=== PATIENT | male | born 1965 | race Caucasian/White ===

== ENCOUNTER 2016-07-26 15:38 | Emergency (ER) | payer OTHER ==
[2016-07-26 15:48] VITALS: BP 151/78
[2016-07-26] MEDS ORDERED: ALBUTEROL SULFATE 2.5 MG/3 ML VIAL.NEB IH ONE (16:06)
--- NOTE | 2016-07-26 16:11 | ERNOTE ---
Time Seen by Provider: 07/26/16 16:01 Stated Complaint: SORE THROAT Presenting Symptoms:: cough, sore throat Source: patient Exam Limitations: no limitations Immunizations: IMMUNIZATION HX Immunizations Up to Date No History of Influenza Vaccine No Hx Pneumococcal Vaccination No Allergies/Adverse Reactions: Allergies No Known Allergies Allergy (Verified 07/26/16 15:48) Home Medications: HOME MEDICATIONS Albuterol Sulfate [Proair Hfa] 8.5 gm IH QID 11/28/12 [Last Taken 12/20/13] Allopurinol [Zyloprim (Allopurinol)] 200 mg PO DAILY 11/28/12 [Last Taken ] Aspirin [Aspirin Enteric Coated] 81 mg PO DAILY 11/28/12 [Last Taken 12/20/13] Furosemide [Lasix] 40 mg PO BID 11/28/12 [Last Taken 12/20/13] Ipratropium [place] [Atrovent Hfa] 12.9 gm IH QID 11/28/12 [Last Taken 12/20/13] Lisinopril [Zestril] 20 mg PO DAILY 11/28/12 [Last Taken 12/20/13] Omeprazole Magnesium [Prilosec Otc] 20 mg PO DAILY 11/28/12 [Last Taken 12/20/13 ] Methylprednisolone [Medrol Dosepak] 4 mg PO QID #21 tab 11/15/14 [Last Taken Unknown] traMADol HCL [Ultram] 50 mg PO QID PRN #20 tablet 11/15/14 [Last Taken Unknown] Albuterol Sulfate 2.5 mg IH Q4H PRN #25 vial.neb 07/26/16 [Last Taken Unknown] predniSONE [Prednisone] 3 tab PO DAILY #12 tab 07/26/16 [Last Taken Unknown] - History of Present Ilness Narrative: Patient started to have URI symptoms for about five days, sore throat, cough, shortness of breath with exertion. He has a history of asthma but has not had any problems with that for about eight years, wears CPAP at night. Date (Duration): 07/21/16 Frequency/Possible Cause: Reports: occasional episodes Modifying Factors - Worsens: Reports: activity Review of Systems - Review of Systems Constitutional: Absent: recent illness, fever, chills ENT: Present: ear pain, nose congestion, sore throat Respiratory: Present: shortness of breath, cough Cardiology: Absent: chest pain Gastrointestinal/Abdominal: Absent: nausea, vomiting, abdominal pain Neurological: Absent: weakness, numbness - Patient's Past Medical History Patient History - Medical: GERD Patient History - Cardiac/Respiratory: Asthma, Hypertension, Hyperlipidemia, Other Patient History - Cancer: No Hx of Cancer Patient History - Surgical Procedures: T & A Patient History - Other: None - Social History Living Situations: home Psych History: No pertinent hx Smoking Status: Never smoker Alcohol Use: none Drug Use: none - Immunizations Immunizations Up to Date: No Hx Pneumococcal Vaccination: No History of Influenza Vaccine: No Physical Exam - Physical Exam General Appearance: Present: wd/wn, alert, no apparent distress, obese Eye Exam: Normal inspection: bilateral Ears, Nose, Throat: Present: normal except -, pharyngeal erythema. Absent: pharyngeal swelling, tonsillar exudate Neck: Present: normal inspection, lymphadenopathy (L). Absent: lymphadenopathy (R) Respiratory: Present: no respiratory distress, decreased breath sounds, expiration (prolonged), wheezing - few Cardiovascular/Chest: Present: regular rate, rhythm, no murmur Neurological Exam: Present: alert, oriented, normal mood/affect Skin Exam: Present: normal color, warm/dry ED Progress - Results and Orders Patient's Lab Results:: I have reviewed the patient's lab results. - Vital Signs Patient's Vital Signs:: I have reviewed the patient's vital signs. Vital Signs: Vital Signs 07/26/16 15:41 Temperature 36.4 C L Pulse Rate 66 Respiratory 16 Rate Blood Pressure 151/78 O2 Sat by Pulse 91 Oximetry - Progress/Reassessment Chief Complaint: Upper Respiratory Symptoms Progress Note-Subjective: 07/26/16 16:42 improved air movement after albuterol neb treatment 07/26/16 16:52 discussed results, feels much better after albuterol Departure - Departure Clinical Impression: Bronchitis Disposition: Home self-care Condition: Good Instructions: Acute Bronchitis, Tohy-ag-[id number] Additional Instructions: use the nebulizer or the inhaler with a spacer call your doctor for follow up Referrals: Chris Lane DO [Staff Physician] - Prescriptions: Albuterol Sulfate 2.5 mg IH Q4H PRN #25 vial.neb PRN Reason: Shortness Of Breath/Wheezing predniSONE [Prednisone] 3 tab PO DAILY #12 tab
[2016-07-26] MEDS ORDERED: ALBUTEROL SULFATE 2.5 MG/0.5 ML VIAL.NEB IH ONE (16:13)
--- OUTSIDE RECORDS SUMMARY | 2016-07-26 16:50 | XMS REPORT | Continuity of Care Document ---
:1965 Author Organization [facility] ([facility]) Address [place] [address] Phone [phone] Care Team Providers Name Role Phone Unavailable Primary Care Provider Unavailable Source Comments This disclosure is being made pursuant to the Care Everywhere program, applicable federal and state laws, and may not contain all informaitonavailable regarding this patient.[facility] ([facility]) Active Allergies and Adverse Reactions Not on File Current Medications Not on file Active Problems Not on file Social History Tobacco Use Types Packs/Day Years Used Date Never Assessed Plan of Care Health Maintenance Due Date Last Done Comments HCV Screening 1965 Hepatitis B Vaccine (1 of 3 - Primary Series) 1965 Tdap Vaccine 1974 Lipid Disorder Screening 1981 MMR Vaccine 1981 Td Vaccine 1981 Colonoscopy 04/20/2013 Prostate Cancer Screening 2013 Influenza Vaccine: Seasonal (#1) 11/10/2015 Results from Last 3 Months Not on file
== END 2016-07-26 17:02 | disposition home or self-care (01) ==
LOC: ER 15:38
DX: J20.9 Acute bronchitis, unspecified (principal); K21.9 Gastro-esophageal reflux disease without esophagitis; I10 Essential (primary) hypertension; J45.909 Unspecified asthma, uncomplicated

== ENCOUNTER 2017-01-25 09:38 | Day surgery (SDC) | payer OTHER ==
[~2017-01-25 09:38] MED LIST: RINGER'S SOLUTION,LACTATED 1,000 ML IV PRN; ceFAZolin SODIUM 2 GM in DEXTROSE 5 % IN WATER 50 ML IV PRN
[2017-01-25] MEDS ORDERED: ENOXAPARIN SODIUM 40 MG/0.4 ML SYRG SC ONE (10:15)
[2017-01-25] MEDS ORDERED: LIDOCAINE HCL/EPINEPHRINE 30 ML VIAL IJ ONE ×2 (11:00)
[2017-01-25] MEDS ORDERED: BUPIVACAINE HCL 50 ML VIAL IJ ONE ×2 (11:00)
--- NOTE | 2017-01-25 12:00 | OR ---
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 It is causing impairment of his activities of daily living. He was placed in the supine position and under the induction of general anesthesia. The left leg was frog-legged and the proximal thigh and genitalia were prepped and draped in a sterile fashion. An elliptical incision was carried out at the base of this polyp. The subq was then divided in continuity with a ligasure device. There was significant edema of the subq fat. Hemostasis was adequate. A 10fr flat drain was brought through a separate stab incision and secured with silk. The incision was closed with diane. A sterile dressing was applied. The patient tolerated the procedure well without apparent complications and was discharged from the OR in stable condition.
[2017-01-25] MEDS ORDERED: HYDROcodone/ACETAMINOPHEN 1 EACH TABLET PO PRN (12:53)
[2017-01-25] MEDS ORDERED: IBUPROFEN 800 MG TABLET PO SCH (13:00)
[2017-01-25 14:02] VITALS: BP 152/95
== END 2017-01-25 09:39 | disposition home or self-care (01) ==
LOC: AMB 09:38
PROVIDERS: ATTEND Specialist
PROC: 0JBM0ZZ Excision of Left Upper Leg Subcutaneous Tissue and Fascia, Open Approach (ICD-10-PCS; principal; 2017-01-25 11:30)
DX: D17.24 Benign lipomatous neoplasm of skin and subcutaneous tissue of left leg (principal); I10 Essential (primary) hypertension; K21.9 Gastro-esophageal reflux disease without esophagitis; J45.909 Unspecified asthma, uncomplicated; F41.9 Anxiety disorder, unspecified; E66.01 Morbid (severe) obesity due to excess calories; Z68.44 Body mass index [BMI] 60.0-69.9, adult

== ENCOUNTER 2017-02-11 09:56 | Inpatient (IN) | payer OTHER ==
[2017-02-11] MEDS ORDERED: ceFAZolin SODIUM 2 GM in DEXTROSE 5 % IN WATER 50 ML IV PRN ×2 (15:48)
[2017-02-11 16:31] LABS: Hematocrit 40.9 % (42.0-52.0); Mean Corpuscular Hemoglobin 29.8 pg (27-31); Mean Corpuscular Hgb Conc 34.2 g/dl (32-36); Mean Platelet Volume 10.9 fl (6.0-9.5); Neutrophil # 15.1 K/mm3 (1.3-6.0); Neutrophil % 86.3 % (42-75.0); Platelet Count 264 K/mm3 (150-450); Red Cell Distribution Width 12.4 % (11.5-14.0); White Blood Count 17.4 K/mm3 (4.0-10.5)
[2017-02-11 16:44] LABS: Albumin * 3.5 gm/dl (3.4-5.0); Anion Gap 11.9 mmol/L (6.8-13.8); BUN/Creatinine Ratio 13.1 (9.0-21.6); Bilirubin, Total 0.5 mg/dL (0.0-1.1); Ca. Corrected For Albumin 9.2 mg/dL (8.4-10.2); Calcium * 9.1 mg/dL (7.9-10.9); Carbon Dioxide 29.9 mmol/L (24-32.6); Potassium 3.8 mmol/L (3.4-4.6); Total Protein 7.7 gm/dL (6.2-8.2)
[2017-02-11] MEDS: RINGER'S SOLUTION,LACTATED 1,000 ML IV PRN ×2 (16:55→22:46)
[2017-02-11] MEDS ORDERED: FLU VACC QS2017-18(6MOS UP)/PF 60 MCG/0.5 ML SYRINGE IM ONE (20:00)
[2017-02-11] MEDS ORDERED: RINGER'S SOLUTION,LACTATED 1,000 ML IV ONE (20:45)
[2017-02-11] MEDS ORDERED: oxyCODONE HCL/ACETAMINOPHEN 1 TAB TABLET PO PRN (22:03)
[2017-02-11] MEDS ORDERED: ONDANSETRON HCL/PF 2 MG/ML VIAL IV PRN (22:03)
[2017-02-11] MEDS ORDERED: FLUTICASONE/SALMETEROL 14 PUFF DISK.W.DEV IH PRN (22:08)
--- NOTE | 2017-02-11 22:42 | OR ---
Operative Report - Dictated Report Narrative: OPERATIVE REPORT DATE OF OPERATION: 02/11/2017 PREOPERATIVE DIAGNOSIS: Wound infection left thigh POSTOPERATIVE DIAGNOSIS: Wound infection with abscess left thigh OPERATION: Incision and drainage, irrigation, and packing of wound left thigh SURGEON: Radhika Vidal MD ANESTHESIA: Gen. rhea Minaya CRNA INDICATIONS FOR PROCEDURE: The patient is a 51-year-old male who had excision of a large lipoma of the left medial thigh on 01/25/2017. He has had considerable drainage from the posterior aspect of his incision and developed sudden tearing pain. He has developed nausea, generalized achiness, and fever. FINDINGS: Abscess of the incision with an open wound 15 cm x 3 cm x 5 cm NARRATIVE OF PROCEDURE: The patient was identified preoperatively, the surgical site was marked, and prior to the administration of anesthetic a multidisciplinary timeout was observed. The patient was placed supine, SCDs were applied, intravenous Ancef was administered, and general endotracheal anesthetic was administered. The incision on the left thigh was prepped with Betadine solution and isolated with sterile drapes. The remainder the patient was covered with a sterile disposable drape. The wound was inspected. The majority of diane on the medial/posterior aspect of the inner thigh were seen to be disrupted. The anterolateral one third of the incision appeared to be healing well. Diane were removed from the area of obvious drainage and a hemostat inserted into the subcutaneous tissue. A large cavity was encountered with grossly purulent drainage. A culture was obtained and submitted. The extent of the cavity was outlined and the overlying diane were removed. The incision was then opened bluntly revealing a very shaggy subcutaneous cavity measuring 15 cm (in the direction of the incision) by 3 cm wide, by 5 cm deep. The cavity was then irrigated with saline and shaggy material nonselectively debrided with gauze. Subcutaneous bleeding points were cauterized until the wound appeared hemostatic. 1 L of saline was used to irrigate the cavity which was then packed with one roll of saline saturated Kerlix. The surrounding skin was washed and dried and a dressing of 2 large Mepilex borders with Medipore tape was applied. All counts were correct. There was no measurable blood loss. A culture was submitted. The operative procedure was terminated at this point. The patient tolerated the anesthetic and procedure well without complication. The patient was recovered in the operating room and then returned to the floor awake, extubated and in stable condition. He will need to be returned to the operating room tomorrow for packing change under anesthesia, and then on a daily basis until a wound VAC can be obtained. He will receive IV Ancef until cultures are returned. SCDs will be used for the VTE prophylaxis due to concerns with postoperative bleeding in the wound. Reviewed and electronically signed
[2017-02-12] MEDS: ceFAZolin SODIUM 1 GM in DEXTROSE 5 % IN WATER 100 ML IV SCH ×8 (03:07→19:05)
[2017-02-12] MEDS: ACETAMINOPHEN 500 MG TABLET PO PRN ×2 (03:24→12:15)
[2017-02-12] MEDS ORDERED: OMEPRAZOLE 20 MG CAPSULE.SA PO SCH (07:00)
[2017-02-12] MEDS ORDERED: FLU VACC QS2017-18(6MOS UP)/PF 60 MCG/0.5 ML SYRINGE IM ONE (09:00)
[2017-02-12] MEDS ORDERED: RINGER'S SOLUTION,LACTATED 1,000 ML IV ONE ×2 (10:00→10:25)
[2017-02-12] MEDS: ALBUTEROL SULFATE 2.5 MG/0.5 ML VIAL.NEB IH SCH ×4 (10:34→19:31)
--- NOTE | 2017-02-12 10:48 | OR ---
Operative Report - Dictated Report Narrative: OPERATIVE REPORT DATE OF OPERATION: 02/12/2017 PREOPERATIVE DIAGNOSIS: Wound infection left thigh POSTOPERATIVE DIAGNOSIS: Wound infection left thigh OPERATION: Packing change under anesthesia SURGEON: Radhika Vidal MD ANESTHESIA: Gen. LMA Leon Minaya CRNA INDICATIONS FOR PROCEDURE: The patient is a 51-year-old male who underwent excision of a large lipoma of the left thigh on 01/25/2017. He developed a wound abscess which was drained and debrided yesterday. He is brought for packing change under anesthesia FINDINGS: No extension, fur cleaner cavity 15 cm long by 3 cm wide by 5 cm deep. Beginning granulation. NARRATIVE OF PROCEDURE: The patient was identified preoperatively, the surgical site was marked, and prior to the administration of anesthetic a multidisciplinary timeout was observed. With the patient supine and SCDs in place Gen. LMA was administered. The old dressing was removed. The left thigh was prepped with Betadine solution and isolated with sterile towels. The packing was removed and the cavity inspected. There was no evidence of abscess extension. There was beginning granulation. The wound was cleaned with saline and a new Kerlix packing placed. Wound was dressed with Mepilex border and Medipore tape. The operative procedure was terminated at this point. Patient tolerated the anesthetic and procedure well without complication. There was no measurable blood loss. All counts were correct. No specimens were submitted. The patient was recovered in the operating room and then returned to the floor awake, extubated, and in stable condition. He will require return to the OR tomorrow for packing change. Reviewed and electronically signed
[2017-02-12] MEDS ORDERED: ALBUTEROL SULFATE 200 PUFF INHALER IH SCH (11:00)
[2017-02-12] MEDS: ALLOPURINOL 100 MG TABLET PO SCH (11:18)
[2017-02-12] MEDS: LISINOPRIL 20 MG TABLET PO SCH (11:18)
[2017-02-12] MEDS: ASPIRIN 81 MG TABLET.DR PO SCH (11:18)
[2017-02-12] MEDS: PANTOPRAZOLE SODIUM 20 MG TABLET.DR PO SCH (11:20)
[2017-02-12] MEDS: RINGER'S SOLUTION,LACTATED 1,000 ML IV PRN (11:32)
[2017-02-13] MEDS: ceFAZolin SODIUM 1 GM in DEXTROSE 5 % IN WATER 100 ML IV SCH ×2 (03:09)
[2017-02-13] MEDS: ALBUTEROL SULFATE 2.5 MG/0.5 ML VIAL.NEB IH SCH ×2 (06:26→10:40)
[2017-02-13] MEDS: RINGER'S SOLUTION,LACTATED 1,000 ML IV PRN (08:22)
[2017-02-13] MEDS ORDERED: RINGER'S SOLUTION,LACTATED 1,000 ML IV ONE (08:50)
[2017-02-13 09:24] VITALS: BP 135/70
[2017-02-13] MEDS: LISINOPRIL 20 MG TABLET PO SCH (09:56)
[2017-02-13] MEDS: ASPIRIN 81 MG TABLET.DR PO SCH (09:56)
[2017-02-13] MEDS: PANTOPRAZOLE SODIUM 20 MG TABLET.DR PO SCH (09:56)
[2017-02-13] MEDS: ALLOPURINOL 100 MG TABLET PO SCH (10:00)
--- NOTE | 2017-02-13 10:09 | PN ---
Dictated Progress Note - Date and Time Seen: Date: 02/12/17 Time: 08:00 - Progress Note Narrative: Vital Signs - Last Taken Temp 37.2 C L 02/12/17 04:22 Pulse 71 02/12/17 04:22 Resp 18 02/12/17 04:22 BP 143/77 02/12/17 04:22 Pulse Ox 94 02/12/17 04:22 Culture 02/11/17 21:15 Wound Culture - Final Thigh - Left Group C Streptococcus VS have remained normal. Has tolerated po well with NPO for dressing change. Has SCD's and is OOB, voiding. For dressing change in OR today
--- NOTE | 2017-02-13 10:20 | PN ---
Dictated Progress Note - Date and Time Seen: Date: 02/13/17 Time: 08:30 - Progress Note Narrative: Vital Signs - Last Taken Temp 36.4 C L 02/13/17 07:02 Pulse 63 02/13/17 07:02 Resp 18 02/13/17 07:02 BP 127/77 02/13/17 07:02 Pulse Ox 94 02/13/17 07:02 Culture 02/11/17 21:15 Wound Culture - Final Thigh - Left Group C Streptococcus VS have remained normal, dressing intact. Has been OOB, voiding, and tolerating diet with NPO for OR this AM
--- NOTE | 2017-02-13 10:31 | DS ---
(1) Wound infection after surgery Problem: Acute Description of Stay: He had I&D of left thigh abscess in the surgical incision with placement of Kerlix packing 02/11/17. He was placed in acute care for antibiotics with SCD's and OOB for VTE prophylaxis. Packing was changed under anesthesia 02/12/17 and without anesthesia on 02/13/17. The wound culture grew group A strep but not viable for JAS. He will be discharged home to leave current dressing intact/re-enforce as needed. Plan is to order a wound vac and refer to Wound Center. Will resume his usual meds and CPAP. Will have to contact patient to arrange venue of next dressing change depending upon when the wound vac is available. Procedures Performed: see notes below - I&D with packing of abscess left thigh incision 02/11/17. Packing change with anesthesia 02/12/17. Packing change Discharge Disposition: Home self care Disposition: Home self-care Condition: Good Discharge Activity: Activity as tolerated Discharge Diet: General/regular food Additional Patient Instructions (free text): Keep current dressing dry and re-enforce as needed. Call for questions or concerns. Complete Home Medications List: Complete Home Medication List: Albuterol Sulfate [Proair Hfa] 8.5 gm IH QID 11/28/12 Allopurinol [Zyloprim] 200 mg PO DAILY 11/28/12 Aspirin [Aspirin Enteric Coated] 81 mg PO DAILY 11/28/12 Furosemide [Lasix] 40 mg PO BID 11/28/12 Lisinopril [Zestril] 20 mg PO DAILY 11/28/12 Fluticasone/Salmeterol [Advair 250-50 Diskus] 1 puff IH BID PRN 01/21/17 Omeprazole Magnesium [Prilosec Otc] 20 mg PO DAILY 01/21/17 HYDROcodone/ACETAMINOPHEN [[place] 5-325 Tablet] 1 - 2 tab PO Q4H PRN #60 tab Ibuprofen [Motrin] 800 mg PO TID #15 tab 01/25/17 Acetaminophen [Tylenol] 1,000 mg PO Q6H PRN tablet 02/13/17
--- NOTE | 2017-02-13 16:47 | OR ---
Operative Report - Dictated Report Narrative: OPERATIVE REPORT DATE OF OPERATION: 02/13/2017 PREOPERATIVE DIAGNOSIS: Wound infection left thigh POSTOPERATIVE DIAGNOSIS: Wound infection left thigh OPERATION: Packing change SURGEON: Radhika Vidal MD ANESTHESIA: None was needed, however Leon Minaya CRNA was present in the event anesthesia was needed. INDICATIONS FOR PROCEDURE: The patient is a 51-year-old male who underwent excision of a large lipoma of the left thigh. He has developed a wound infection which was drained and packed on 01/11/2017. The packing was changed yesterday with anesthesia. He is brought today for packing change FINDINGS: Marked improvement with good granulation tissue. No need for anesthesia NARRATIVE OF PROCEDURE: The patient was identified preoperatively, the surgical site was marked, and prior to the procedure a multidisciplinary timeout was observed. Leon Minaya CRNA was available in the event that anesthesia would be needed. The old dressing was removed. The packing was removed, which the patient tolerated well. The wound was digitally explored which the patient also tolerated. At this juncture was elected not to use anesthesia for the packing change. The wound was then packed with saline soaked Kerlix, covered with a Mepilex border and Medipore tape. The operative procedure was terminated at this point. The patient tolerated the procedure well without complication. There was no measurable blood loss. The patient was transferred back to the floor awake and in stable condition. It is anticipated the future dressing changes will not require anesthesia, however he will require daily dressing change until a wound VAC can be placed. The patient will be discharged home today and contacted to arrange a suitable Kai for either dressing change or wound VAC placement tomorrow. Reviewed and electronically signed
== END 2017-02-13 12:45 | disposition home or self-care (01) | DRG 863 ==
LOC: MS 09:56 → OBSVTOIN 02-12 09:56
PROVIDERS: ADMIT Surgery; ATTEND Surgery
PROC: 0J9M0ZX Drainage of Left Upper Leg Subcutaneous Tissue and Fascia, Open Approach, Diagnostic (ICD-10-PCS; principal; 2017-02-11 18:15)
PROC: 2W0MX6Z Change Pressure Dressing on Left Lower Extremity (ICD-10-PCS; 2017-02-12)
PROC: 2W0MX6Z Change Pressure Dressing on Left Lower Extremity (ICD-10-PCS; 2017-02-13)
DX: T81.4XXA Infection following a procedure, initial encounter (principal); L02.416 Cutaneous abscess of left lower limb; B95.4 Other streptococcus as the cause of diseases classified elsewhere; I10 Essential (primary) hypertension; K21.9 Gastro-esophageal reflux disease without esophagitis; Z79.82 Long term (current) use of aspirin; Z23 Encounter for immunization
CPT/HCPCS: 15852; 27301; 36415; 80053; 85025; 87070; 87077; 90686; 94640; 94660; G0008; G0378; G0379

== ENCOUNTER 2017-06-04 00:38 | Inpatient (IN) | payer OTHER ==
[2017-06-04 01:23] LABS: Hemoglobin 11.5 gm/dL (13.5-18.0); Mean Cell Volume 87.4 fl (78-100); Mean Corpuscular Hemoglobin 29.6 pg (27-31); Mean Corpuscular Hgb Conc 33.8 g/dl (32-36); Mean Platelet Volume 11.4 fl (6.0-9.5); Neutrophil # 13.9 K/mm3 (1.3-6.0); Neutrophil % 91.8 % (42-75.0); Platelet Count 138 K/mm3 (150-450); Red Blood Count 3.89 M/mm3 (4.7-6.0); Red Cell Distribution Width 14.1 % (11.5-14.0); White Blood Count 15.1 K/mm3 (4.0-10.5)
--- NOTE | 2017-06-04 01:57 | ERNOTE ---
Lower Extremity HPI - Narrative Date of Service: 06/04/17 - General Lower Extremities Pain: leg: left, knee: left, thigh: left, foot: left - patient c/o of increased swelling and redness Time Seen by Provider: 06/04/17 01:03 Source: patient, family Exam Limitations: no limitations - Immun/Allergies/Home Medications Immunizations: IMMUNIZATION HX Immunizations Up to Date Yes History of Influenza Vaccine Yes Hx Pneumococcal Vaccination No Allergies/Adverse Reactions: Allergies Allergy/AdvReac Type Severity Reaction Status Date / Time No Known Allergies Allergy Verified 06/04/17 00:52 Home Medications: HOME MEDICATIONS Albuterol Sulfate [Proair Hfa] 8.5 gm IH QID PRN 11/28/12 [Last Taken 12/20/13] Allopurinol [Zyloprim] 200 mg PO DAILY 11/28/12 [Last Taken 12/20/13] Aspirin [Aspirin Enteric Coated] 81 mg PO DAILY 11/28/12 [Last Taken 12/20/13] Furosemide [Lasix] 40 mg PO BID 11/28/12 [Last Taken 12/20/13] Lisinopril [Zestril] 20 mg PO DAILY 11/28/12 [Last Taken 02/11/17 06:00] Fluticasone/Salmeterol [Advair 250-50 Diskus] 1 puff IH BID 01/21/17 [Last Taken Unknown] Omeprazole Magnesium [Prilosec Otc] 20 mg PO DAILY 01/21/17 [Last Taken Unknown] Amoxicillin Trihydrate [Amoxil] 500 mg PO TID #30 cap 06/02/17 [Last Taken Unknown] - History of Present Illness Narrative: previously seen on and symptoms have worsened Occurred: yesterday Location of Incident: other - no injury Method of Injury: Reports: no apparent injury Loss of Consciousness: Reports: no loss of consciousness Modifying Factors - (Improves): Reports: rest Modifying Factors - (Worsens): Reports: movement Associated Symptoms: Reports: unable to bear weight Review of Systems - Review of Systems Constitutional: Present: See HPI EYE: Present: no symptoms reported ENT: Present: no symptoms reported Respiratory: Present: shortness of breath, cough Cardiology: Present: no symptoms reported Gastrointestinal/Abdominal: Present: no symptoms reported Genitourinary: Present: no symptoms reported Musculoskeletal: Present: muscle stiffness, other - increased swelling and redness Neurological: Present: no symptoms reported Endocrine: Present: no symptoms reported Hematologic/Lymphatic: Present: no symptoms reported Psych: Present: no symptoms reported All Other Systems: All systems neg except as marked - Narrative Narrative: hx of morbid obseity - Patient's Past Medical History Patient History - Medical: Anxiety, GERD, Obesity, Other Patient History - Cardiac/Respiratory: Asthma, Hypertension, Hyperlipidemia, Peripheral Vascular Disease, Sleep Apnea Patient History - Cancer: No Hx of Cancer Patient History - Surgical Procedures: Colonoscopy, T & A, Other, Orthopedic Patient History - Other: None - Family History Family History:: no untoward family reactions to anesthesia, no familial bleeding tendencies, no family history of clotting disorders, no family history of premature - Family History Mother Family History - Medical: , Hypothyroidism, Other Family History - Cardiac/Respiratory: No pertinent hx Family History - Cancer: No pertinent family hx Father Family History - Medical: No pertinent hx Family History - Cardiac/Respiratory: Coronary Heart Disease, Hypertension, Other Family History - Cancer: No pertinent family hx - Social History Living Situations: parents Abuse History: No History of abuse Psych History: Hx of Anxiety Smoking Status: Never smoker Have you smoked in the past 12 months: No Do you dip or chew tobacco: No Alcohol Use: occasionally Drug Use: none - Immunizations Immunizations Up to Date: Yes Hx Pneumococcal Vaccination: No History of Influenza Vaccine: Yes Physical Exam - Physical Exam General Appearance: Present: moderate distress Head Exam: Present: normal inspection, no evidence of injury Eye Exam: Normal inspection: bilateral, PERRL: bilateral, EOMI: bilateral Ears, Nose, Throat: Present: normal ENT inspection Neck: Present: normal inspection, nontender Respiratory: Present: no respiratory distress, normal breath sounds, no accessory muscle use, chest nontender, lungs clear Cardiovascular/Chest: Present: regular rate, rhythm, no murmur, normal peripheral pulses Gastrointestinal/Abdominal: Present: normal bowel sounds, nontender, nondistended, soft, no organomegaly Back Exam: Present: normal inspection, normal range of motion, no CVA tenderness , no vertebral tenderness Extremity Exam: Present: decreased range of motion, extremity edema, other - increased redness and swelling to left lower extremity extending to groin Neurological Exam: Present: alert, oriented, normal mood/affect, no motor/ sensory deficits Skin Exam: Present: normal color, warm/dry Lymphatic Exam: Present: no adenopathy ED Progress - Date and Time Seen: Date and Time: 06/04/17 04:04 condition unchanged, case discussed with grover will, labs reviewed, to be admitted - Results and Orders Patient's Lab Results:: I have reviewed the patient's lab results. - Vital Signs Patient's Vital Signs:: I have reviewed the patient's vital signs. Vital Signs: Vital Signs 06/04/17 00:42 Temperature 37.3 C Pulse Rate 94 Respiratory 22 H Rate Blood Pressure 152/86 O2 Sat by Pulse 97 Oximetry - EKG EKG: NSR - X-Ray X-Ray #1 X-Ray: chest Interpretation: Interp. by me - no acute process - CT/Ultrasound CT/Ultrasound Narrative: us reveals no dvt - Progress/Reassessment Chief Complaint: Lower Extremity Pain/ Injury Progress:: Unchanged - Transfer of Care Expected Disposition: Admit Plan - Plan Plan: to be admitted Departure Clinical Impression: Cellulitis and abscess of left leg - Departure Disposition: Short Term Hospital Inpatient Condition: Fair Referrals: Chris Lane DO [Primary Care Provider] -
[2017-06-04 02:09] LABS: ALT 40 U/L (19-67); AST 25 U/L (0-48); Albumin * 2.7 gm/dl (3.4-5.0); Alkaline Phosphatase * 40 U/L (50-170); BNP * 436 pg/mL (5-140); BUN/Creatinine Ratio 13.2 (9.0-21.6); Bilirubin, Total 0.7 mg/dL (0.0-1.1); Blood Urea Nitrogen 14 mg/dL (6-23); Ca. Corrected For Albumin 8.8 mg/dL (8.4-10.2); Calcium * 8.1 mg/dL (7.9-10.9); Carbon Dioxide 25.6 mmol/L (24-32.6); Chloride 98 mmol/L (97-106); Glucose * 178 mg/dL (70-110); Potassium 3.6 mmol/L (3.4-4.6); Sodium 135 mmol/L (132-142); Total Protein 6.4 gm/dL (6.2-8.2)
[2017-06-04 02:10] LABS: Troponin I Less than 0.017 ng/ml (0.00-0.10)
[2017-06-04 02:34] LABS: CRP 36.3 mg/dL (0.0-0.9)
[2017-06-04] MEDS ORDERED: VANCOMYCIN HCL 1 GM in DEXTROSE 5 % IN WATER 250 ML IV ONE ×2 (04:02)
[2017-06-04] MEDS ORDERED: NORMAL SALINE 1,000 ML IV ONE (04:02)
[2017-06-04] MEDS ORDERED: MORPHINE SULFATE 2 MG/ML DISP.SYRIN IV ONE (04:12)
[2017-06-04] MEDS ORDERED: MORPHINE SULFATE 4 MG/ML SYRG IV SCH (04:15)
[2017-06-04] MEDS ORDERED: VANCOMYCIN HCL 1 GM in DEXTROSE 5 % IN WATER 250 ML IV SCH ×2 (04:15)
--- NOTE | 2017-06-04 05:03 | HP ---
Chief Complaint - Chief Complaint Date of Service: 06/04/17 Time of Service: 04:57 Chief Complaint: " Body aches, worsening redness on the leg, no appetite, night ". Source of HPI- Pt; reliable, ERP report. History of Present Illness: Mr. Morrissey is a 52-yr-old WM pt of Dr. Chris Lane with a PMH of:Asthma, Anxiety, GERD, HTN, Insomnia, Lipoma, Lymphedema & YOUSUF. Pt states that on Tuesday night (06/01/17), he developed fevers & chills along with pain and redness on his LT leg. He came to the [facility] ER on 06/02 and was thought to have Erysipelas. He was discharged from the ED on Amoxicillin 500 mg t.i.d x 10 days. He states that he took the medication as prescribed "religiously." However , he never felt any better. The pain on his RT foot/leg became worse on the night of 06/04. He had body aches. The LT leg appeared to have had an extension of the redness and felt extremely hot to touch. He was brought to the ED by his sister. He denies n/v, SOB & Chest pain. He states that he has been taking APAP & Ibuprofen to help ease the pain.The work-up at the ED revealed he had WBC-->15 ,000 with a LT shift, ESR--> 80, CRP 36.3, Procalcitonin-->6.14. 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 He ended up developing an abscess of the area 2-3 weeks in 2016 and he underwent Incision and drainage, irrigation and packing of wound on left thigh.Pt will need to be admitted inpatient due to failure to outpatient treatment for cellulitis. - Patient's Past Medical History Patient History - Medical: Anxiety, GERD, Obesity, Other - Lipoma, Insomnia Patient History - Cardiac/Respiratory: Asthma, Hypertension, Hyperlipidemia, Peripheral Vascular Disease, Sleep Apnea Patient History - Cancer: No Hx of Cancer Patient History - Surgical Procedures: Colonoscopy, T & A, Other, Orthopedic Patient History - Other: None - Family History Family History:: no untoward family reactions to anesthesia, no familial bleeding tendencies, no family history of clotting disorders, no family history of premature - Family History Mother Family History - Medical: , Hypothyroidism, Other Family History - Cardiac/Respiratory: No pertinent hx Family History - Cancer: No pertinent family hx Father Family History - Medical: No pertinent hx Family History - Cardiac/Respiratory: Coronary Heart Disease, Hypertension, Other Family History - Cancer: No pertinent family hx - Social History Living Situations: parents Abuse History: No History of abuse Psych History: Hx of Anxiety Smoking Status: Never smoker Have you smoked in the past 12 months: No Do you dip or chew tobacco: No Alcohol Use: occasionally Drug Use: none - Immunizations Immunizations Up to Date: Yes Hx Pneumococcal Vaccination: No History of Influenza Vaccine: Yes Review Of Systems (GEN) - Review of Systems Generalized/Overall Review: Present: Weakness, Chills, Fever, Malaise EENTM: Absent: Ear Pain, Nose Congestion Respiratory: Absent: Cough, Shortness of Breath, Orthopnea Cardiac: Absent: Chest Pain, Edema, Palpitations Abdominal: Absent: Nausea, Vomiting, Hematemesis, Abdominal Pain, Constipation, Diarrhea Genitourinary: Absent: Burning, Itching, Urgency Musculoskeletal: Absent: Joint Pain, Back Pain Neurological: Absent: Headache, Anxiety, Depressed, Emotional Problems Skin: Present: Other - Redness Endocrine: Present: Intolerance to Heat, Flushing Misc: All systems neg except as marked Immunizations: IMMUNIZATION HX Immunizations Up to Date Yes History of Influenza Vaccine Yes Hx Pneumococcal Vaccination No Allergies/Adverse Reactions: Allergies Allergy/AdvReac Type Severity Reaction Status Date / Time No Known Allergies Allergy Verified 06/04/17 00:52 Home Medications: HOME MEDICATIONS Albuterol Sulfate [Proair Hfa] 8.5 gm IH QID PRN 11/28/12 [Last Taken 12/20/13] Allopurinol [Zyloprim] 200 mg PO DAILY 11/28/12 [Last Taken 12/20/13] Aspirin [Aspirin Enteric Coated] 81 mg PO DAILY 11/28/12 [Last Taken 12/20/13] Furosemide [Lasix] 40 mg PO BID 11/28/12 [Last Taken 12/20/13] Lisinopril [Zestril] 20 mg PO DAILY 11/28/12 [Last Taken 02/11/17 06:00] Fluticasone/Salmeterol [Advair 250-50 Diskus] 1 puff IH BID 01/21/17 [Last Taken Unknown] Omeprazole Magnesium [Prilosec Otc] 20 mg PO DAILY 01/21/17 [Last Taken Unknown] Amoxicillin Trihydrate [Amoxil] 500 mg PO TID #30 cap 06/02/17 [Last Taken Unknown] Exam - Exam Vital Signs: Vital Signs - Last Taken Temp 37.3 C 06/04/17 00:42 Pulse 84 06/04/17 04:32 Resp 22 H 06/04/17 04:32 BP 173/87 06/04/17 04:32 Pulse Ox 97 06/04/17 04:32 Constitutional: Present: Alert, Oriented x3, Mild distress, Obese ENT Exam: Present: normal ENT inspection Eye Exam: bilateral eye: normal inspection, PERRL Neck: Present: non-tender, full range of motion, supple Back Exam: Present: normal inspection Breasts: Present: Exam deferred Respiratory: Present: lungs clear, No rales, No wheezing Cardiovascular/Chest: Present: normal peripheral pulses, regular rate, rhythm, no chest tenderness, no murmur, edema Abdomen: Present: Normal bowel sounds, soft, nontender, obese /Rectal: Present: Exam deferred Extremity: Present: no calf tenderness, lower extremity edema - Non Pitting Edema. Skin Exam: Present: other - Erythema on LLE Lymphatic: Present: no adenopathy Neurologic: Present: no motor/sensory deficits, alert, normal mood/affect, oriented x 3 Appearance: Present: appropriate appearance, appropriate insight Eye contact: Present: cooperative, good eye contact, normal speech Thoughts: Present: normal thought pattern, no apparent hallucination Diagnostic Studies: Laboratory Results WBC 15.1 K/mm3 (4.0-10.5) H 06/04/17 01:20 RBC 3.89 M/mm3 (4.7-6.0) L 06/04/17 01:20 Hgb 11.5 gm/dL (13.5-18.0) L 06/04/17 01:20 Hct 34.0 % (42.0-52.0) L 06/04/17 01:20 MCV 87.4 fl (78-100) 06/04/17 01:20 MCH 29.6 pg (27-31) 06/04/17 01:20 MCHC 33.8 g/dl (32-36) 06/04/17 01:20 RDW 14.1 % (11.5-14.0) H 06/04/17 01:20 Plt Count 138 K/mm3 (150-450) L 06/04/17 01:20 MPV 11.4 fl (6.0-9.5) H 06/04/17 01:20 Immature Gran % (Auto) 1.70 % (0.001-0.429) H 06/04/17 01:20 Immature Gran # (Auto) 0.25 K/mm3 (0.000-0.0310) H 06/04/17 01:20 Neutrophils % 91.8 % (42-75.0) H 06/04/17 01:20 Lymphocytes % 3.2 % (20-51) L 06/04/17 01:20 Monocytes % 3.2 % (0.0-9) 06/04/17 01:20 Eosinophils % 0.0 % (0.0-3.0) 06/04/17 01:20 Basophils % 0.1 % (0.0-1.0) 06/04/17 01:20 Nucleated RBC % 0.0 k/mm3 (0-1) 06/04/17 01:20 Neutrophils # 13.9 K/mm3 (1.3-6.0) H 06/04/17 01:20 Lymphocytes # 0.5 k/mm3 (1.5-3.5) L 06/04/17 01:20 Monocytes # 0.5 k/mm3 (0.0-1.0) 06/04/17 01:20 Eosinophils # 0.0 k/mm3 (0.0-0.7) 06/04/17 01:20 Absolute Basophils 0.0 k/mm3 (0.0-0.1) 06/04/17 01:20 Sodium 135 mmol/L (132-142) 06/04/17 01:20 Plasma Sodium 136 mmol/L (130-142) 06/04/17 01:20 Potassium 3.6 mmol/L (3.4-4.6) 06/04/17 01:20 Chloride 98 mmol/L (97-106) 06/04/17 01:20 Carbon Dioxide 25.6 mmol/L (24-32.6) 06/04/17 01:20 Anion Gap 15.0 mmol/L (6.8-13.8) H 06/04/17 01:20 BUN 14 mg/dL (6-23) 06/04/17 01:20 Creatinine 1.06 mg/dL (0.4-1.4) 06/04/17 01:20 Est GFR (Non-Af Amer) 77 mL/min (60-130) D 06/04/17 01:20 BUN/Creatinine Ratio 13.2 (9.0-21.6) 06/04/17 01:20 Random Glucose 178 mg/dL (70-110) H 06/04/17 01:20 Lactic Acid, Venous 1.7 mmol/L (0.4-1.9) 06/04/17 01:20 Calcium 8.1 mg/dL (7.9-10.9) 06/04/17 01:20 Calcium Adj for Albumin 8.8 mg/dL (8.4-10.2) 06/04/17 01:20 Total Bilirubin 0.7 mg/dL (0.0-1.1) 06/04/17 01:20 AST 25 U/L (0-48) 06/04/17 01:20 ALT 40 U/L (19-67) 06/04/17 01:20 Alkaline Phosphatase 40 U/L (50-170) L 06/04/17 01:20 Troponin I Less than 0.017 ng/ml (0.00-0.10) 06/04/17 01:20 C-Reactive Prot, Quant 36.3 mg/dL (0.0-0.9) H 06/04/17 01:20 B-Natriuretic Peptide 436 pg/mL (5-140) H 06/04/17 01:20 Total Protein 6.4 gm/dL (6.2-8.2) 06/04/17 01:20 Albumin 2.7 gm/dl (3.4-5.0) L 06/04/17 01:20 Procalcitonin 6.14 ng/mL (0.05-0.50) H 06/04/17 01:20 Assessment/Plan - Assessment/Plan (1) Cellulitis Assessment: Pt has localized erythema, swelling, tenderness and warmth/hotness of the LT foot along with systemic signs. There is no skin breach. He has an area of swelling on the the LT inner thigh which is questionable for an underlying abscess. May need to consider getting an US of this area to see if the area has subcutaneous accumulation pus and consulting surgery if that were to be the case. May also consider MRI to see if there are signs of deeper infection. Will cover with Vancomycin for now until blood culture results. Monitor CBC. Problem: Acute (2) HTN (hypertension) Problem: Chronic (3) GERD (gastroesophageal reflux disease) Problem: Chronic (4) Lymphedema Problem: Chronic (5) Anxiety Problem: Chronic
[2017-06-04] MEDS ORDERED: ALBUTEROL SULFATE 200 PUFF INHALER IH PRN (06:38)
[2017-06-04] MEDS ORDERED: MORPHINE SULFATE 4 MG/ML SYRG IV PRN (06:47)
[2017-06-04] MEDS ORDERED: OMEPRAZOLE 20 MG CAPSULE.SA PO SCH (07:00)
[2017-06-04] MEDS ORDERED: MORPHINE SULFATE 2 MG/ML DISP.SYRIN IV PRN (07:15)
[2017-06-04] MEDS: PANTOPRAZOLE SODIUM 20 MG TABLET.DR PO SCH (08:45)
[2017-06-04] MEDS: FLUTICASONE/SALMETEROL 14 PUFF DISK.W.DEV IH SCH ×2 (08:52→21:14)
[2017-06-04] MEDS: HEPARIN SODIUM,PORCINE 5,000 UNITS/ML VIAL SC SCH ×3 (08:52→21:15)
[2017-06-04] MEDS: ALLOPURINOL 100 MG TABLET PO SCH (08:53)
[2017-06-04] MEDS: FUROSEMIDE 40 MG TABLET PO SCH ×2 (08:53→21:16)
[2017-06-04] MEDS: ASPIRIN 81 MG TABLET.DR PO SCH (08:54)
[2017-06-04] MEDS: LISINOPRIL 20 MG TABLET PO SCH (08:54)
[2017-06-04] MEDS: VANCOMYCIN HCL 2 GM in DEXTROSE 5 % IN WATER 500 ML IV SCH ×4 (10:57→23:10)
[2017-06-04] MEDS ORDERED: FUROSEMIDE 10 MG/ML VIAL IV ONE (13:57)
[2017-06-04] MEDS: KETOROLAC TROMETHAMINE 30 MG/ML VIAL IV SCH ×2 (14:28→21:15)
[2017-06-05] MEDS: KETOROLAC TROMETHAMINE 30 MG/ML VIAL IV SCH ×4 (02:52→21:05)
[2017-06-05 05:28] LABS: Hemoglobin 10.9 gm/dL (13.5-18.0); Mean Cell Volume 87.2 fl (78-100); Mean Corpuscular Hemoglobin 29.7 pg (27-31); Mean Corpuscular Hgb Conc 34.1 g/dl (32-36); Mean Platelet Volume 12.4 fl (6.0-9.5); Neutrophil # 10.2 K/mm3 (1.3-6.0); Neutrophil % 88.1 % (42-75.0); Platelet Count 143 K/mm3 (150-450); Red Blood Count 3.67 M/mm3 (4.7-6.0); Red Cell Distribution Width 14.3 % (11.5-14.0); White Blood Count 11.6 K/mm3 (4.0-10.5)
[2017-06-05 05:40] LABS: Anion Gap 12.4 mmol/L (6.8-13.8); BUN/Creatinine Ratio 14.7 (9.0-21.6); Carbon Dioxide 27.8 mmol/L (24-32.6); Estimated Creat Clear 87.6; Potassium 3.2 mmol/L (3.4-4.6)
[2017-06-05] MEDS: HEPARIN SODIUM,PORCINE 5,000 UNITS/ML VIAL SC SCH ×3 (05:40→21:04)
--- NOTE | 2017-06-05 06:21 | PN ---
Subjective - Date and Time Seen Date: 06/05/17 Time: 06:16 Subjective Narrative: Pt seen this am. Has no complaints. The redness on the LT foot and tenderness has improved. No other acute events overnight. Objective - Vitals Vitals: Last Vital Signs Temp 36.4 C L 06/05/17 02:26 Pulse 78 06/05/17 02:26 Resp 20 06/05/17 02:26 BP 145/65 06/05/17 02:26 Pulse Ox 95 06/05/17 02:26 - Abnormal Lab Findings Abnormal Lab Findings: Abnormal Lab Results 06/05/17 06/05/17 Range/Units 04:55 04:55 WBC 11.6 H D (4.0-10.5) K/mm3 RBC 3.67 L (4.7-6.0) M/mm3 Hgb 10.9 L (13.5-18.0) gm/dL Hct 32.0 L (42.0-52.0) % RDW 14.3 H (11.5-14.0) % Plt Count 143 L (150-450) K/mm3 MPV 12.4 H (6.0-9.5) fl Immature Gran % (Auto) 0.50 H (0.001-0.429) % Immature Gran # (Auto) 0.06 H (0.000-0.0310) K/mm3 Neutrophils % 88.1 H (42-75.0) % Lymphocytes % 4.7 L (20-51) % Neutrophils # 10.2 H (1.3-6.0) K/mm3 Lymphocytes # 0.6 L (1.5-3.5) k/mm3 Potassium 3.2 L (3.4-4.6) mmol/L Random Glucose 169 H (70-110) mg/dL - Exam Constitutional: Present: Alert, Oriented x3, Cooperative, Obese ENT Exam: Present: normal ENT inspection Neck: Present: non-tender, full range of motion, supple Breasts: Present: Exam deferred Respiratory: Present: lungs clear, No rales, No wheezing Cardiovascular/Chest: Present: normal peripheral pulses, regular rate, rhythm, no chest tenderness Abdomen: Present: Normal bowel sounds, soft, nontender /Rectal: Present: Exam deferred Extremity: Present: normal range of motion, non-tender, normal inspection, lower extremity edema - 2-3 + saleem. tibial pedal edema Skin Exam: Present: other - Errhythem on LT foot Lymphatic: Present: no adenopathy Neurologic: Present: no motor/sensory deficits, alert, oriented x 3 Appearance: Present: appropriate appearance, appropriate insight Eye contact: Present: cooperative, good eye contact, normal speech Thoughts: Present: normal thought pattern, no apparent hallucination Assessment/Plan - Problems/Diagnosis (1) Cellulitis Problem: Acute Narrative: Pt has localized erythema, swelling, tenderness and warmth/hotness of the LT foot along with systemic signs. Continue wit with Vancomycin for now until blood culture results. Monitor CBC. 06/05- Erythema and tenderness on LT foot is improving. Laboratory Tests 06/02/17 06/04/17 06/04/17 07:30 01:20 01:20 WBC 15.1 H Neutrophils % 91.8 H ESR 90 C-Reactive Prot, Quant 36.3 H Procalcitonin 6.4 (2) HTN (hypertension) Problem: Chronic Narrative: Stable- lisinopril. (3) GERD (gastroesophageal reflux disease) Problem: Chronic (4) Lymphedema Problem: Chronic Narrative: Continue with Lasix 40 bid. given additional Lasix 40 mg iv 06/04. K low, will replace this am. (5) Anxiety Problem: Chronic (6) Sleep apnea Problem: Chronic
[2017-06-05] MEDS ORDERED: POTASSIUM CHLORIDE 20 MEQ TABLET.SA PO ONE (06:26)
[2017-06-05] MEDS: PANTOPRAZOLE SODIUM 20 MG TABLET.DR PO SCH ×3 (07:32→08:14)
[2017-06-05] MEDS ORDERED: POTASSIUM CHLORIDE 20 MEQ TABLET.SA ONE (07:35)
[2017-06-05] MEDS: FUROSEMIDE 40 MG TABLET PO SCH ×2 (08:09→21:06)
[2017-06-05] MEDS: LISINOPRIL 20 MG TABLET PO SCH (08:09)
[2017-06-05] MEDS: ALLOPURINOL 100 MG TABLET PO SCH (08:09)
[2017-06-05] MEDS: ASPIRIN 81 MG TABLET.DR PO SCH (08:09)
[2017-06-05] MEDS: FLUTICASONE/SALMETEROL 14 PUFF DISK.W.DEV IH SCH ×2 (08:10→21:05)
[2017-06-05] MEDS: ALBUTEROL SULFATE 2.5 MG/0.5 ML VIAL.NEB IH PRN ×2 (08:24→21:33)
[2017-06-05] MEDS: VANCOMYCIN HCL 2 GM in DEXTROSE 5 % IN WATER 500 ML IV SCH ×4 (11:54→22:48)
[2017-06-06] MEDS: KETOROLAC TROMETHAMINE 30 MG/ML VIAL IV SCH ×2 (03:07→07:03)
[2017-06-06] MEDS ORDERED: POTASSIUM CHLORIDE 20 MEQ TABLET.SA PO ONE (04:19)
--- NOTE | 2017-06-06 04:20 | PN ---
Subjective - Date and Time Seen Date: 06/06/17 Subjective Narrative: Pt examined this am. The erythema on LT leg is improving. Has been able to tolerate activity without a lot of pain on LT Leg. No other acute events overnight. Objective - Vitals Vitals: Last Vital Signs Temp 36.8 C 06/06/17 02:42 Pulse 68 06/06/17 02:42 Resp 20 06/06/17 02:42 BP 131/64 06/06/17 02:42 Pulse Ox 100 06/06/17 02:42 - Abnormal Lab Findings Abnormal Lab Findings: Abnormal Lab Results 06/05/17 06/05/17 Range/Units 04:55 04:55 WBC 11.6 H D (4.0-10.5) K/mm3 RBC 3.67 L (4.7-6.0) M/mm3 Hgb 10.9 L (13.5-18.0) gm/dL Hct 32.0 L (42.0-52.0) % RDW 14.3 H (11.5-14.0) % Plt Count 143 L (150-450) K/mm3 MPV 12.4 H (6.0-9.5) fl Immature Gran % (Auto) 0.50 H (0.001-0.429) % Immature Gran # (Auto) 0.06 H (0.000-0.0310) K/mm3 Neutrophils % 88.1 H (42-75.0) % Lymphocytes % 4.7 L (20-51) % Neutrophils # 10.2 H (1.3-6.0) K/mm3 Lymphocytes # 0.6 L (1.5-3.5) k/mm3 Potassium 3.2 L (3.4-4.6) mmol/L Random Glucose 169 H (70-110) mg/dL - Exam Constitutional: Present: Alert, Oriented x3, Cooperative, No distress, Morbidly obese ENT Exam: Present: normal ENT inspection. Absent: dry mucous membranes Neck: Present: non-tender, full range of motion, supple Breasts: Present: Exam deferred Respiratory: Present: lungs clear, No rales, No wheezing Cardiovascular/Chest: Present: normal peripheral pulses, regular rate, rhythm, no chest tenderness Abdomen: Present: Normal bowel sounds, soft, nontender, obese /Rectal: Present: Exam deferred Extremity: Present: lower extremity edema - Pitting edema in LLE of 2-3 + Skin Exam: Present: other - Erythema on LT Leg Lymphatic: Present: no adenopathy Neurologic: Present: no motor/sensory deficits, alert, oriented x 3 Appearance: Present: appropriate appearance, appropriate insight Eye contact: Present: cooperative, good eye contact, normal speech Thoughts: Present: normal thought pattern, no apparent hallucination Assessment/Plan - Problems/Diagnosis (1) Cellulitis Problem: Acute Narrative: Pt has localized erythema, swelling, tenderness and warmth/hotness of the LT foot along with systemic signs. Continue wit with Vancomycin for now until blood culture results. Monitor CBC. 06/05- Erythema, tenderness on LT foot is improving. WBC trending down. Laboratory Tests 06/04/17 06/05/17 06/06/17 01:20 04:55 05:25 WBC 15.1 H 11.6 H D 9.2 D Laboratory Tests 06/04/17 06/04/17 06/04/17 01:20 01:20 05:26 ESR 90 H C-Reactive Prot, Quant 36.3 H Procalcitonin 6.14 H (2) HTN (hypertension) Problem: Chronic Narrative: Stable - Lisinopril. (3) Hypokalemia Problem: Acute Narrative: Given oral replenishing. Will start daily dose of 20 kcl Laboratory Tests 06/04/17 06/05/17 06/06/17 01:20 04:55 05:25 Potassium 3.6 3.2 L 3.4 (4) GERD (gastroesophageal reflux disease) Problem: Chronic (5) Lymphedema Problem: Chronic Narrative: Noted to have pitting BLE. Continue Lasix 40 bid. (6) Anxiety Problem: Chronic (7) Sleep apnea Problem: Chronic Narrative: Stable- Continue home CPAP unit.
[2017-06-06 05:29] LABS: Hematocrit 29.6 % (42.0-52.0); Hemoglobin 10.4 gm/dL (13.5-18.0); Mean Cell Volume 83.9 fl (78-100); Mean Corpuscular Hemoglobin 29.5 pg (27-31); Mean Corpuscular Hgb Conc 35.1 g/dl (32-36); Mean Platelet Volume 11.2 fl (6.0-9.5); Neutrophil # 7.6 K/mm3 (1.3-6.0); Neutrophil % 82.8 % (42-75.0); Platelet Count 157 K/mm3 (150-450); Red Blood Count 3.53 M/mm3 (4.7-6.0); Red Cell Distribution Width 14.4 % (11.5-14.0); White Blood Count 9.2 K/mm3 (4.0-10.5)
[2017-06-06 05:37] LABS: Anion Gap 11.3 mmol/L (6.8-13.8); BUN/Creatinine Ratio 15.1 (9.0-21.6); Calcium * 8.1 mg/dL (7.9-10.9); Carbon Dioxide 29.1 mmol/L (24-32.6); Potassium 3.4 mmol/L (3.4-4.6)
[2017-06-06] MEDS: HEPARIN SODIUM,PORCINE 5,000 UNITS/ML VIAL SC SCH ×3 (06:15→21:08)
[2017-06-06] MEDS: PANTOPRAZOLE SODIUM 20 MG TABLET.DR PO SCH (07:03)
[2017-06-06] MEDS: FLUTICASONE/SALMETEROL 14 PUFF DISK.W.DEV IH SCH ×2 (08:27→21:07)
[2017-06-06] MEDS: FUROSEMIDE 40 MG TABLET PO SCH ×2 (08:27→21:08)
[2017-06-06] MEDS: POTASSIUM CHLORIDE 20 MEQ TABLET.SA PO SCH (08:28)
[2017-06-06] MEDS: ALLOPURINOL 100 MG TABLET PO SCH (08:28)
[2017-06-06] MEDS: LISINOPRIL 20 MG TABLET PO SCH (08:28)
[2017-06-06] MEDS: ASPIRIN 81 MG TABLET.DR PO SCH (08:28)
[2017-06-06] MEDS: VANCOMYCIN HCL 2 GM in DEXTROSE 5 % IN WATER 500 ML IV SCH ×2 (11:21)
[2017-06-06] MEDS: ALBUTEROL SULFATE 2.5 MG/0.5 ML VIAL.NEB IH PRN (17:51)
[2017-06-06] MEDS: DEXTROSE 5% IV SCH ×2 (22:52)
[2017-06-06] MEDS: WATER IV SCH ×2 (22:52)
[2017-06-06] MEDS: SENNOSIDES 8.6 MG TABLET PO SCH (22:52)
[2017-06-06] MEDS: VANCOMYCIN HCL IV SCH ×2 (22:52)
[2017-06-07 06:06] LABS: Hematocrit 31.3 % (42.0-52.0); Hemoglobin 10.6 gm/dL (13.5-18.0); Mean Cell Volume 86.2 fl (78-100); Mean Corpuscular Hemoglobin 29.2 pg (27-31); Mean Corpuscular Hgb Conc 33.9 g/dl (32-36); Mean Platelet Volume 11.7 fl (6.0-9.5); Neutrophil # 7.5 K/mm3 (1.3-6.0); Neutrophil % 81.2 % (42-75.0); Platelet Count 208 K/mm3 (150-450); Red Blood Count 3.63 M/mm3 (4.7-6.0); Red Cell Distribution Width 14.1 % (11.5-14.0); White Blood Count 9.2 K/mm3 (4.0-10.5)
[2017-06-07 06:07] LABS: Anion Gap 12.8 mmol/L (6.8-13.8); BUN/Creatinine Ratio 13.1 (9.0-21.6); Calcium * 8.2 mg/dL (7.9-10.9); Carbon Dioxide 28.6 mmol/L (24-32.6); Estimated Creat Clear 96.4; Potassium 3.4 mmol/L (3.4-4.6)
[2017-06-07] MEDS: PANTOPRAZOLE SODIUM 20 MG TABLET.DR PO SCH (06:37)
[2017-06-07] MEDS: HEPARIN SODIUM,PORCINE 5,000 UNITS/ML VIAL SC SCH ×3 (06:39→22:09)
[2017-06-07] MEDS: HYDROcodone/ACETAMINOPHEN 1 EACH TABLET PO PRN (07:02)
[2017-06-07] MEDS ORDERED: FUROSEMIDE 10 MG/ML VIAL IV ONE (08:08)
[2017-06-07 08:31] LABS: Hemoglobin A1C 6.5 % (4.00-6.0)
[2017-06-07] MEDS: LISINOPRIL 20 MG TABLET PO SCH (09:22)
[2017-06-07] MEDS: POTASSIUM CHLORIDE 20 MEQ TABLET.SA PO SCH (09:22)
[2017-06-07] MEDS: ASPIRIN 81 MG TABLET.DR PO SCH (09:23)
[2017-06-07] MEDS: ALLOPURINOL 100 MG TABLET PO SCH (09:23)
[2017-06-07] MEDS: FLUTICASONE/SALMETEROL 14 PUFF DISK.W.DEV IH SCH ×2 (09:25→20:07)
[2017-06-07] MEDS: WATER IV SCH ×4 (11:17→22:10)
[2017-06-07] MEDS: DEXTROSE 5% IV SCH ×4 (11:17→22:10)
[2017-06-07] MEDS: VANCOMYCIN HCL IV SCH ×4 (11:17→22:10)
[2017-06-07] MEDS: SENNOSIDES 8.6 MG TABLET PO SCH (20:07)
--- NOTE | 2017-06-07 23:01 | PN ---
Subjective - Date and Time Seen Date: 06/07/17 Time: 12:15 Subjective Narrative: Pain controlled. Reports less swelling in right leg. No nausea or vomiting. Patient denies depression or anxiety. Has no interest in speaking with psych. Objective - Vitals Vitals: Last Vital Signs Temp 36.5 C 06/07/17 19:19 Pulse 79 06/07/17 19:19 Resp 16 06/07/17 19:19 BP 162/53 06/07/17 19:19 Pulse Ox 95 06/07/17 19:19 - Abnormal Lab Findings Abnormal Lab Findings: Abnormal Lab Results 06/07/17 06/07/17 06/07/17 Range/Units 05:54 05:54 05:54 RBC 3.63 L (4.7-6.0) M/mm3 Hgb 10.6 L (13.5-18.0) gm/dL Hct 31.3 L (42.0-52.0) % RDW 14.1 H (11.5-14.0) % MPV 11.7 H (6.0-9.5) fl Immature Gran % (Auto) 2.10 H (0.001-0.429) % Immature Gran # (Auto) 0.19 H (0.000-0.0310) K/mm3 Neutrophils % 81.2 H (42-75.0) % Lymphocytes % 6.7 L (20-51) % Monocytes % 9.2 H (0.0-9) % Neutrophils # 7.5 H (1.3-6.0) K/mm3 Lymphocytes # 0.6 L (1.5-3.5) k/mm3 Random Glucose 175 H (70-110) mg/dL Hemoglobin A1c 6.5 H (4.00-6.0) % - Exam Constitutional: Present: Alert, Oriented x3, Cooperative ENT Exam: Present: hearing grossly normal Respiratory: Present: lungs clear, normal breath sounds Cardiovascular/Chest: Present: regular rate, rhythm, no murmur Abdomen: Present: Normal bowel sounds, soft, nontender, nondistended Extremity: Present: lower extremity edema, other - Light erythema to left leg Assessment/Plan - Problems/Diagnosis (1) Cellulitis Problem: Acute Qualifiers: Site of cellulitis: extremity Site of cellulitis of extremity: lower extremity Laterality: left Qualified Code(s): L03.116 - Cellulitis of left lower limb Narrative: Continue IV antibiotics. WBC improved. Erythema improving.
[2017-06-08] MEDS: ACETAMINOPHEN 325 MG TABLET PO PRN (03:13)
[2017-06-08] MEDS: HEPARIN SODIUM,PORCINE 5,000 UNITS/ML VIAL SC SCH ×3 (05:01→21:21)
[2017-06-08] MEDS: HYDROcodone/ACETAMINOPHEN 1 EACH TABLET PO PRN ×3 (05:03→20:02)
[2017-06-08 06:00] LABS: Hemoglobin 10.8 gm/dL (13.5-18.0); Mean Cell Volume 85.3 fl (78-100); Mean Corpuscular Hemoglobin 28.8 pg (27-31); Mean Corpuscular Hgb Conc 33.8 g/dl (32-36); Mean Platelet Volume 11.4 fl (6.0-9.5); Neutrophil # 7.8 K/mm3 (1.3-6.0); Neutrophil % 80.8 % (42-75.0); Platelet Count 236 K/mm3 (150-450); Red Blood Count 3.75 M/mm3 (4.7-6.0); Red Cell Distribution Width 14.2 % (11.5-14.0); White Blood Count 9.6 K/mm3 (4.0-10.5)
[2017-06-08] MEDS: PANTOPRAZOLE SODIUM 20 MG TABLET.DR PO SCH (07:36)
[2017-06-08] MEDS: FLUTICASONE/SALMETEROL 14 PUFF DISK.W.DEV IH SCH ×2 (09:33→21:18)
[2017-06-08] MEDS: ASPIRIN 81 MG TABLET.DR PO SCH (09:33)
[2017-06-08] MEDS: POTASSIUM CHLORIDE 20 MEQ TABLET.SA PO SCH (09:34)
[2017-06-08] MEDS: LISINOPRIL 20 MG TABLET PO SCH (09:34)
[2017-06-08] MEDS: ALLOPURINOL 100 MG TABLET PO SCH (09:35)
[2017-06-08] MEDS ORDERED: VANCOMYCIN HCL LEVEL XX ONE (10:30)
[2017-06-08] MEDS: VANCOMYCIN HCL IV SCH ×4 (11:54→14:19)
[2017-06-08] MEDS: DEXTROSE 5% IV SCH ×4 (11:54→14:19)
[2017-06-08] MEDS: WATER IV SCH ×4 (11:54→14:19)
--- NOTE | 2017-06-08 13:25 | CONS ---
[facility] - General Date of Service: 06/08/17 Source: patient Exam Limitations: no limitations - History of Present Illness Initial Comments: Patient is a 52 year old male, who developed redness and pain in his left lower leg. He was admitted to the hospital on 06/04/2017, after failure of outpatient therapy for the cellulitis of this area. The consult is regarding the multiple fluid filled blisters on the lower leg. He states they developed in the last few days. He has continued on Vancomycin. His WBC count is improving, and the erythema has resolved minimally. The patient states he has significant pain in the areas of the blisters, and does not tolerate manipulation of these areas. He has been a recent [facility], regarding a non-healing area to the left upper thigh following an I&D. Timing/Duration: changing over time Associated Symptoms: weakness Allergies/Adverse Reactions: Allergies No Known Allergies Allergy (Verified 06/04/17 09:21) Home Medications: Home Medications Medication Instructions Recorded Last Taken Albuterol Sulfate [Proair Hfa] 8.5 gm IH QID PRN 11/28/12 12/20/13 Allopurinol [Zyloprim] 200 mg PO DAILY 11/28/12 12/20/13 Aspirin [Aspirin Enteric Coated] 81 mg PO DAILY 11/28/12 12/20/13 Furosemide [Lasix] 40 mg PO BID 11/28/12 12/20/13 Lisinopril [Zestril] 20 mg PO DAILY 11/28/12 02/11/17 06:00 Fluticasone/Salmeterol [Advair 1 puff IH BID 01/21/17 Unknown 250-50 Diskus] Omeprazole Magnesium [Prilosec Otc] 20 mg PO DAILY 01/21/17 Unknown - Patient's Past Medical History Patient History - Medical: Anxiety, GERD, Obesity, Other - Lipoma, Insomnia Patient History - Cardiac/Respiratory: Asthma, Hypertension, Hyperlipidemia, Peripheral Vascular Disease, Sleep Apnea Patient History - Cancer: No Hx of Cancer Patient History - Surgical Procedures: Colonoscopy, T & A, Other, Orthopedic Patient History - Other: None - Family History Family History:: no untoward family reactions to anesthesia, no familial bleeding tendencies, no family history of clotting disorders, no family history of premature - Family History Mother Family History - Medical: , Hypothyroidism, Other Family History - Cardiac/Respiratory: No pertinent hx Family History - Cancer: No pertinent family hx Father Family History - Medical: No pertinent hx Family History - Cardiac/Respiratory: Coronary Heart Disease, Hypertension, Other Family History - Cancer: No pertinent family hx - Social History Living Situations: parents Abuse History: No History of abuse Psych History: Hx of Anxiety Smoking Status: Never smoker Have you smoked in the past 12 months: No Do you dip or chew tobacco: No Alcohol Use: occasionally Drug Use: none - Immunizations Immunizations Up to Date: Yes Hx Pneumococcal Vaccination: No History of Influenza Vaccine: Yes Procedures CHANGE PRESSURE DRESSING ON LEFT LOWER EXTREMITY (02/12/17) CLOSURE SKIN & SUBCUTANEOUS NEC (08/14/13) DRAINAGE OF L UP LEG SUBCU/FASCIA, OPEN APPROACH, DIAGN (02/12/17) EXCISION OF L UP LEG SUBCU/FASCIA, OPEN APPROACH (01/25/17) Medications - Medications Current Medications: Current Medications Acetaminophen (Tylenol) 650 mg PO Q6H PRN PRN Reason: Mild pain (pain scale 1-3) Stop: 07/06/17 20:54 Last Admin: 06/08/17 03:13 Dose: 650 mg Acetaminophen/Hydrocodone Bitart ([place] 5-325) 1 each PO Q4H PRN PRN Reason: Hypertension Stop: 07/07/17 06:45 Last Admin: 06/08/17 05:03 Dose: 1 each Albuterol Sulfate (Albuterol Sulfate 2.5 Mg/0.5ml) 2.5 mg IH QID PRN PRN Reason: Shortness Of Breath Stop: 07/04/17 06:39 Last Admin: 06/06/17 17:51 Dose: 2.5 mg Allopurinol (Zyloprim) 200 mg PO DAILY COUNTS INCLUDE 234 BEDS AT THE [facility] Stop: 07/04/17 09:01 Last Admin: 06/08/17 09:35 Dose: 200 mg Aspirin (Aspirin Enteric Coated) 81 mg PO DAILY COUNTS INCLUDE 234 BEDS AT THE [facility] Stop: 07/04/17 09:01 Last Admin: 06/08/17 09:33 Dose: 81 mg Heparin Sodium (Porcine) (Heparin Sodium) 5,000 units SC Q8H COUNTS INCLUDE 234 BEDS AT THE [facility] Stop: 07/04/17 06:01 Last Admin: 06/08/17 05:01 Dose: 5,000 units Lisinopril (Zestril) 20 mg PO DAILY [facility] Stop: 07/04/17 09:01 Last Admin: 06/08/17 09:34 Dose: 20 mg Pantoprazole Sodium (Protonix) 20 mg PO QDAC [facility] Stop: 07/04/17 07:01 Last Admin: 06/08/17 07:36 Dose: 20 mg Potassium Chloride (K-Dur) 20 meq PO DAILY [facility] Stop: 07/06/17 09:01 Last Admin: 06/08/17 09:34 Dose: 20 meq Fluticasone/Salmeterol (Advair 250-50 Diskus) 1 puff IH BID [facility] Stop: 07/04/17 09:01 Last Admin: 06/08/17 09:33 Dose: 1 puff Senna (Senokot) 17.2 mg PO HS [facility] Stop: 07/06/17 21:01 Last Admin: 06/07/17 20:07 Dose: Not Given Review of Systems - Review of Systems Generalized/Overall Review: Present: Weakness Respiratory: Absent: Cough Abdominal: Absent: Nausea Musculoskeletal: Present: Muscle Pain Skin: Present: Lesions Physical Examination - Exam Vital Signs: Vital Signs - Last Taken Temp 37 C 06/08/17 11:34 Pulse 74 06/08/17 11:34 Resp 28 H 06/08/17 11:34 BP 152/88 06/08/17 11:34 Pulse Ox 96 06/08/17 11:34 O2 Oxygen Delivery Method Room Air Constitutional: Present: Alert, Cooperative, Morbidly obese ENT Exam: Present: hearing grossly normal Extremity: Present: pedal edema, other - the patient has large lower extremities due to long-standing lymphadema. the left lower leg has an area on posterior and anterior/lateral aspect that is red, swollen with fluid filled blisters present. these appear to have purulent material present. the area measures approximately 15cm x 10cm. there is serous drainage present from the lower extremity. - Results and Findings: Narrative: The blistered areas would benefit from debridement. Unfortunately, the patient will not tolerate the procedure without significant pain control, and may require sedation. Recommend an evaluation by Dr Vidal for possible surgical debridement of the area. He will also require compression following the procedure. Thank you for the consult, we would be happy to assist with healing as an outpatient as well. Lab/Microbiology results last 24 hrs: Abnormal/Pending Laboratory Last 24 HRS 06/08/17 05:57 RBC 3.75 L Hgb 10.8 L Hct 32.0 L RDW 14.2 H MPV 11.4 H Immature Gran % (Auto) 3.00 H Immature Gran # (Auto) 0.29 H Neutrophils % 80.8 H Lymphocytes % 6.7 L Neutrophils # 7.8 H Lymphocytes # 0.6 L Culture 06/07/17 16:30 Wound Culture - Preliminary Lower Leg - Left No Growth
[2017-06-08] MEDS ORDERED: FUROSEMIDE 10 MG/ML VIAL IV ONE (16:20)
[2017-06-08] MEDS: SENNOSIDES 8.6 MG TABLET PO SCH (21:18)
--- NOTE | 2017-06-08 23:51 | PN ---
Subjective - Date and Time Seen Date: 06/08/17 Time: 12:30 Subjective Narrative: Left leg developed blisters. Wound clinic consulted and recommended surgical debridement, will consult surgery. Objective - Vitals Vitals: Last Vital Signs Temp 36.3 C L 06/08/17 23:17 Pulse 69 06/08/17 23:17 Resp 20 06/08/17 23:17 BP 138/74 06/08/17 23:17 Pulse Ox 94 06/08/17 23:17 - Abnormal Lab Findings Abnormal Lab Findings: Abnormal Lab Results 06/08/17 Range/Units 05:57 RBC 3.75 L (4.7-6.0) M/mm3 Hgb 10.8 L (13.5-18.0) gm/dL Hct 32.0 L (42.0-52.0) % RDW 14.2 H (11.5-14.0) % MPV 11.4 H (6.0-9.5) fl Immature Gran % (Auto) 3.00 H (0.001-0.429) % Immature Gran # (Auto) 0.29 H (0.000-0.0310) K/mm3 Neutrophils % 80.8 H (42-75.0) % Lymphocytes % 6.7 L (20-51) % Neutrophils # 7.8 H (1.3-6.0) K/mm3 Lymphocytes # 0.6 L (1.5-3.5) k/mm3 - Exam Constitutional: Present: Alert, Oriented x3, Cooperative ENT Exam: Present: hearing grossly normal Respiratory: Present: lungs clear, normal breath sounds Cardiovascular/Chest: Present: regular rate, rhythm, no murmur Abdomen: Present: Normal bowel sounds, soft, nontender, nondistended Extremity: Present: lower extremity edema, other - Left lower extremity with multiple yellow fluid filled blisters with surrounding erythema Assessment/Plan - Problems/Diagnosis (1) Cellulitis and abscess of left leg Problem: Acute Narrative: Wound clinic consulted who then recommended surgical consultation for debridement. Discussed with Dr. Vidal who plans to take patient to surgery for debridement tomorrow in the OR.
[2017-06-09] MEDS: HYDROcodone/ACETAMINOPHEN 1 EACH TABLET PO PRN ×4 (00:35→18:50)
[2017-06-09] MEDS: WATER IV SCH ×4 (00:36→13:49)
[2017-06-09] MEDS: VANCOMYCIN HCL IV SCH ×4 (00:36→13:49)
[2017-06-09] MEDS: DEXTROSE 5% IV SCH ×4 (00:36→13:49)
[2017-06-09] MEDS: MORPHINE SULFATE 2 MG/ML DISP.SYRIN IV PRN ×2 (02:40→04:41)
[2017-06-09] MEDS ORDERED: MORPHINE SULFATE 2 MG/ML DISP.SYRIN IV PRN (04:05)
[2017-06-09] MEDS: HEPARIN SODIUM,PORCINE 5,000 UNITS/ML VIAL SC SCH ×3 (06:37→21:40)
[2017-06-09] MEDS: PANTOPRAZOLE SODIUM 20 MG TABLET.DR PO SCH (08:01)
[2017-06-09] MEDS: LISINOPRIL 20 MG TABLET PO SCH (08:33)
[2017-06-09] MEDS: ALLOPURINOL 100 MG TABLET PO SCH (10:09)
[2017-06-09] MEDS: ASPIRIN 81 MG TABLET.DR PO SCH (10:09)
[2017-06-09] MEDS: FLUTICASONE/SALMETEROL 14 PUFF DISK.W.DEV IH SCH ×2 (10:09→20:02)
[2017-06-09] MEDS: POTASSIUM CHLORIDE 20 MEQ TABLET.SA PO SCH (10:09)
[2017-06-09] MEDS ORDERED: RINGER'S SOLUTION,LACTATED 1,000 ML IV ONE (10:25)
[2017-06-09] MEDS: SENNOSIDES 8.6 MG TABLET PO SCH (20:03)
--- NOTE | 2017-06-09 23:21 | PN ---
Subjective - Date and Time Seen Date: 06/09/17 Time: 16:45 Subjective Narrative: Patient reports increased pain when getting out of bed. Otherwise when not moving his leg his pain is controlled. No nausea, vomiting, fever, or chills. Objective - Vitals Vitals: Last Vital Signs Temp 37.2 C 06/09/17 20:00 Pulse 80 06/09/17 20:40 Resp 18 06/09/17 20:40 BP 154/75 06/09/17 20:00 Pulse Ox 92 06/09/17 20:40 - Exam Constitutional: Present: Alert, Oriented x3, Cooperative ENT Exam: Present: hearing grossly normal Respiratory: Present: lungs clear, normal breath sounds Cardiovascular/Chest: Present: regular rate, rhythm, no murmur Abdomen: Present: Normal bowel sounds, soft, nontender, nondistended Extremity: Present: other - Left leg wrapped in compression gauze Assessment/Plan - Problems/Diagnosis (1) Cellulitis and abscess of left leg Problem: Acute Narrative: Surgically debrided today, now in compression gauze. Will need completed course of IV antibiotics and dressing change to re-evaluate prior to discharge consideration.
[2017-06-10] MEDS: VANCOMYCIN HCL IV SCH ×4 (00:18→14:00)
[2017-06-10] MEDS: WATER IV SCH ×4 (00:18→14:00)
[2017-06-10] MEDS: DEXTROSE 5% IV SCH ×4 (00:18→14:00)
[2017-06-10] MEDS: HYDROcodone/ACETAMINOPHEN 1 EACH TABLET PO PRN ×4 (01:40→20:01)
[2017-06-10] MEDS: HEPARIN SODIUM,PORCINE 5,000 UNITS/ML VIAL SC SCH ×3 (05:27→22:32)
[2017-06-10 05:51] LABS: Hematocrit 30.9 % (42.0-52.0); Hemoglobin 10.5 gm/dL (13.5-18.0); Mean Cell Volume 86.3 fl (78-100); Mean Corpuscular Hemoglobin 29.3 pg (27-31); Neutrophil # 11.4 K/mm3 (1.3-6.0); Neutrophil % 84.4 % (42-75.0); Platelet Count 285 K/mm3 (150-450); Red Blood Count 3.58 M/mm3 (4.7-6.0); White Blood Count 13.5 K/mm3 (4.0-10.5)
[2017-06-10 06:05] LABS: Albumin * 1.9 gm/dl (3.4-5.0); Anion Gap 8.8 mmol/L (6.8-13.8); BUN/Creatinine Ratio 10.5 (9.0-21.6); Bilirubin, Total 0.4 mg/dL (0.0-1.1); Ca. Corrected For Albumin 9.1 mg/dL (8.4-10.2); Calcium * 7.7 mg/dL (7.9-10.9); Potassium 3.8 mmol/L (3.4-4.6); Total Protein 6.3 gm/dL (6.2-8.2)
[2017-06-10] MEDS: PANTOPRAZOLE SODIUM 20 MG TABLET.DR PO SCH (06:39)
--- NOTE | 2017-06-10 08:59 | OR ---
Operative Report - Dictated Report Narrative: OPERATIVE REPORT DATE OF OPERATION: 06/09/2017 PREOPERATIVE DIAGNOSIS: Postphlebitic syndrome, chronic venous stasis with infected stasis ulcers left lower leg POSTOPERATIVE DIAGNOSIS: Same OPERATION: Subcutaneous level debridement of ulcers left lower leg ( anterolateral ulcer 15 cm x 12 cm. Posteromedial ulcers 15 cm x 12 cm and 7 cm x 7 cm) SURGEON: Radhika Vidal MD ANESTHESIA: Gen. LMA César Woods CRNA INDICATIONS FOR PROCEDURE: The patient is a super morbidly obese 52-year-old male with chronic venous stasis. He has also had excision of a large lesion on the left medial upper thigh which became infected and required a wound VAC for closure. He has developed increased swelling of the left lower extremity with blister formation and cellulitis FINDINGS: Superficial infected blisters with healthy underlying tissue NARRATIVE OF PROCEDURE: The patient was notified preoperatively, the surgical site was marked, and prior to the administration of anesthetic a multidisciplinary timeout was observed. The patient was placed supine and LMA general anesthetic administered. The patient's left leg below the knee was prepped with Betadine solution and isolated with an extremity drape. A large blister on the anterolateral wound was opened sharply with a scalpel and a sample of fluid and tissue submitted for culture. Using forceps, scalpel, and gauze debridement all nonviable tissue from the anterolateral and posteromedial wounds was debrided back to viable subcutaneous tissue. The ulcers were then dressed with Hydrofera Blue, AVD, and a graded compression wrap of Coban 2 was applied from the base of the toes to the knee crease. This was covered with a stockinette. The operative procedure was terminated at this point. The patient tolerated the anesthetic and procedure well without complication. There was no measurable blood loss. All counts were correct. The patient was transferred to the recovery room awake, extubated, and in stable condition. Reviewed and electronically signed
[2017-06-10] MEDS: ALLOPURINOL 100 MG TABLET PO SCH (09:14)
[2017-06-10] MEDS: LISINOPRIL 20 MG TABLET PO SCH (09:14)
[2017-06-10] MEDS: POTASSIUM CHLORIDE 20 MEQ TABLET.SA PO SCH (09:14)
[2017-06-10] MEDS: ASPIRIN 81 MG TABLET.DR PO SCH (09:15)
[2017-06-10] MEDS: FLUTICASONE/SALMETEROL 14 PUFF DISK.W.DEV IH SCH ×2 (09:16→20:02)
[2017-06-10] MEDS ORDERED: VANCOMYCIN HCL LEVEL XX ONE (12:30)
[2017-06-10] MEDS ORDERED: WATER IV SCH ×2 (17:00)
[2017-06-10] MEDS ORDERED: VANCOMYCIN HCL IV SCH ×2 (17:00)
[2017-06-10] MEDS ORDERED: DEXTROSE 5% IV SCH ×2 (17:00)
[2017-06-10] MEDS: SENNOSIDES 8.6 MG TABLET PO SCH (20:02)
--- NOTE | 2017-06-10 23:38 | PN ---
Subjective - Date and Time Seen Date: 06/10/17 Time: 16:52 Subjective Narrative: Overall doing well. Pain controlled, except during movement. No fever, chills, nausea, or vomiting. WBC elevated today. Will need to monitor this and recheck leg during dressing changes this or Tuesday per surgery/wound clinic. Objective - Vitals Vitals: Last Vital Signs Temp 36.8 C 06/10/17 18:00 Pulse 80 06/10/17 21:56 Resp 18 06/10/17 21:56 BP 150/74 06/10/17 18:00 Pulse Ox 96 06/10/17 21:56 - Abnormal Lab Findings Abnormal Lab Findings: Abnormal Lab Results 06/10/17 06/10/17 Range/Units 05:41 05:41 WBC 13.5 H D (4.0-10.5) K/mm3 RBC 3.58 L (4.7-6.0) M/mm3 Hgb 10.5 L (13.5-18.0) gm/dL Hct 30.9 L (42.0-52.0) % MPV 11.0 H (6.0-9.5) fl Immature Gran % (Auto) 1.40 H (0.001-0.429) % Immature Gran # (Auto) 0.19 H (0.000-0.0310) K/mm3 Neutrophils % 84.4 H (42-75.0) % Lymphocytes % 6.4 L (20-51) % Neutrophils # 11.4 H (1.3-6.0) K/mm3 Lymphocytes # 0.9 L (1.5-3.5) k/mm3 Random Glucose 176 H (70-110) mg/dL Calcium 7.7 L (7.9-10.9) mg/dL Alkaline Phosphatase 48 L (50-170) U/L Albumin 1.9 L (3.4-5.0) gm/dl
[2017-06-11] MEDS: DEXTROSE 5% IV SCH ×4 (00:48→13:29)
[2017-06-11] MEDS: VANCOMYCIN HCL IV SCH ×4 (00:48→13:29)
[2017-06-11] MEDS: WATER IV SCH ×4 (00:48→13:29)
[2017-06-11] MEDS: HEPARIN SODIUM,PORCINE 5,000 UNITS/ML VIAL SC SCH ×3 (05:55→21:27)
[2017-06-11 07:20] LABS: Hemoglobin 10.8 gm/dL (13.5-18.0); Mean Cell Volume 86.3 fl (78-100); Mean Corpuscular Hemoglobin 29.1 pg (27-31); Mean Corpuscular Hgb Conc 33.8 g/dl (32-36); Mean Platelet Volume 10.6 fl (6.0-9.5); Neutrophil # 11.4 K/mm3 (1.3-6.0); Neutrophil % 84.8 % (42-75.0); Platelet Count 315 K/mm3 (150-450); Red Blood Count 3.71 M/mm3 (4.7-6.0); White Blood Count 13.5 K/mm3 (4.0-10.5)
[2017-06-11] MEDS: FLUTICASONE/SALMETEROL 14 PUFF DISK.W.DEV IH SCH ×2 (08:18→21:28)
[2017-06-11] MEDS: POTASSIUM CHLORIDE 20 MEQ TABLET.SA PO SCH (08:19)
[2017-06-11] MEDS: ASPIRIN 81 MG TABLET.DR PO SCH (08:20)
[2017-06-11] MEDS: PANTOPRAZOLE SODIUM 20 MG TABLET.DR PO SCH (08:20)
[2017-06-11] MEDS: LISINOPRIL 20 MG TABLET PO SCH (08:20)
[2017-06-11] MEDS: ALLOPURINOL 100 MG TABLET PO SCH (08:21)
[2017-06-11] MEDS: HYDROcodone/ACETAMINOPHEN 1 EACH TABLET PO PRN ×3 (09:25→18:33)
[2017-06-11] MEDS: ACETAMINOPHEN 325 MG TABLET PO PRN (21:27)
[2017-06-11] MEDS: SENNOSIDES 8.6 MG TABLET PO SCH (21:27)
[2017-06-12] MEDS: VANCOMYCIN HCL IV SCH ×4 (01:16→13:22)
[2017-06-12] MEDS: DEXTROSE 5% IV SCH ×4 (01:16→13:22)
[2017-06-12] MEDS: WATER IV SCH ×4 (01:16→13:22)
[2017-06-12] MEDS: HYDROcodone/ACETAMINOPHEN 1 EACH TABLET PO PRN ×5 (04:04→21:52)
[2017-06-12 05:30] LABS: Hematocrit 31.1 % (42.0-52.0); Hemoglobin 10.3 gm/dL (13.5-18.0); Mean Cell Volume 86.4 fl (78-100); Mean Corpuscular Hemoglobin 28.6 pg (27-31); Mean Corpuscular Hgb Conc 33.1 g/dl (32-36); Mean Platelet Volume 10.9 fl (6.0-9.5); Neutrophil # 9.3 K/mm3 (1.3-6.0); Neutrophil % 83.5 % (42-75.0); Platelet Count 311 K/mm3 (150-450); White Blood Count 11.2 K/mm3 (4.0-10.5)
[2017-06-12] MEDS: HEPARIN SODIUM,PORCINE 5,000 UNITS/ML VIAL SC SCH ×3 (05:41→21:51)
[2017-06-12] MEDS: PANTOPRAZOLE SODIUM 20 MG TABLET.DR PO SCH (06:50)
[2017-06-12] MEDS: ASPIRIN 81 MG TABLET.DR PO SCH (08:55)
[2017-06-12] MEDS: ALLOPURINOL 100 MG TABLET PO SCH (08:55)
[2017-06-12] MEDS: LISINOPRIL 20 MG TABLET PO SCH (08:55)
[2017-06-12] MEDS: POTASSIUM CHLORIDE 20 MEQ TABLET.SA PO SCH (08:55)
[2017-06-12] MEDS: FLUTICASONE/SALMETEROL 14 PUFF DISK.W.DEV IH SCH ×2 (08:55→21:52)
[2017-06-12] MEDS: SENNOSIDES 8.6 MG TABLET PO SCH (21:53)
--- NOTE | 2017-06-12 23:04 | PN ---
Subjective - Date and Time Seen Date: 06/12/17 Time: 20:00 Subjective Narrative: Patient seen today in bed without discomfort. He denies calf pain, fever or chills. he his S/P incision and drainage of left foot cellulitis. he anticipating dressing change with Dr Vidal and plans to follow up with the wound clinic upon discharge. pt stated he notices a blister in his groin a few days ago,its not painful or itches but its uncomfortable having it there.Cellulitis in the surrounding area have since been improving. Objective - Review of Systems Generalized/Overall Review: Reports: No Symptoms Reported EENTM: Reports: No Symptoms Reported Respiratory: Reports: No Symptoms Reported Cardiac: Reports: No Symptoms Reported Abdominal: Reports: No Symptoms Reported Genitourinary Symptoms: Reports: Frequency Musculoskeletal Complaints: Reports: No Symptoms Reported Skin: Reports: Dryness, Other - left leg cellulitis gradually improving Endocrine: Reports: No Symptoms Reported - Vitals Vitals: Last Vital Signs Temp 37.0 C 06/12/17 20:17 Pulse 70 06/12/17 20:17 Resp 20 06/12/17 20:17 BP 147/79 06/12/17 20:17 Pulse Ox 93 06/12/17 20:17 - Abnormal Lab Findings Abnormal Lab Findings: Abnormal Lab Results 06/12/17 Range/Units 05:00 WBC 11.2 H (4.0-10.5) K/mm3 RBC 3.60 L (4.7-6.0) M/mm3 Hgb 10.3 L (13.5-18.0) gm/dL Hct 31.1 L (42.0-52.0) % MPV 10.9 H (6.0-9.5) fl Immature Gran % (Auto) 1.50 H (0.001-0.429) % Immature Gran # (Auto) 0.17 H (0.000-0.0310) K/mm3 Neutrophils % 83.5 H (42-75.0) % Lymphocytes % 6.7 L (20-51) % Neutrophils # 9.3 H (1.3-6.0) K/mm3 Lymphocytes # 0.8 L (1.5-3.5) k/mm3 - Exam Constitutional: Present: Alert, Oriented x3, Cooperative, No distress, Morbidly obese ENT Exam: Present: hearing grossly normal Neck: Present: full range of motion Breasts: Present: Exam deferred Respiratory: Present: chest non-tender, normal breath sounds, no respiratory distress, decreased breath sounds Cardiovascular/Chest: Present: normal peripheral pulses, regular rate, rhythm, no chest tenderness, edema Abdomen: Present: Normal bowel sounds, soft, nontender, nondistended, no rebound tenderness /Rectal: Present: Exam deferred Extremity: Present: normal range of motion, inflammation, lower extremity edema , pedal edema, swelling Skin Exam: Present: warm/dry, no cyanosis, cool/dry, other - left groin blister , no erythema Neurologic: Present: oriented x 3 Appearance: Present: appropriate appearance, appropriate insight Eye contact: Present: cooperative, good eye contact Assessment/Plan Plan Narrative: Cellulitis and abscess of left leg POD# 2 06/10/17 Subcutaneous level debridement of ulcers left lower leg (anterolateral ulcer 15 cm x 12 cm. Posteromedial ulcers 15 cm x 12 cm and 7 cm x 7 cm)- secondary to Postphlebitic syndrome, chronic venous stasis with infected stasis ulcers left lower leg. Wound culture was negative WBC 13--->11.2 continue with vancomycin, pharmacy to dose. Keep legs elevated Sleep apnea Cpap encourage use of I/S and cornet Chronic conditions stable Hypertension GERD Lymphedema Anxiety Code status: Full GI ppx:Protonix VTE ppx: Heparin SC Q8hr Time 30 minutes and case discussed with Dr Zaidi - Problems/Diagnosis (1) Cellulitis and abscess of left leg Problem: Acute (2) Hypokalemia Problem: Resolved (3) Anxiety Problem: Chronic (4) GERD (gastroesophageal reflux disease) Problem: Chronic (5) HTN (hypertension) Problem: Chronic (6) Lymphedema Problem: Chronic (7) Sleep apnea Problem: Chronic
--- NOTE | 2017-06-12 23:39 | PN ---
Subjective - Date and Time Seen Date: 06/11/17 Time: 22:00 Subjective Narrative: Patient stated his legs are improving gradually and dressing to be changed by Dr Vidal and he will follow up with wound clinic. His wound culture had no growth. Objective - Review of Systems Generalized/Overall Review: Reports: No Symptoms Reported EENTM: Reports: No Symptoms Reported Respiratory: Reports: No Symptoms Reported Cardiac: Reports: No Symptoms Reported Abdominal: Reports: No Symptoms Reported Genitourinary Symptoms: Reports: No Symptoms Reported Musculoskeletal Complaints: Reports: No Symptoms Reported Neurological: Reports: No Symptoms Reported Skin: Reports: Other - blister in groin - Vitals Vitals: Last Vital Signs - Abnormal Lab Findings Abnormal Lab Findings: Abnormal Lab Results 06/12/17 Range/Units 05:00 WBC 11.2 H (4.0-10.5) K/mm3 RBC 3.60 L (4.7-6.0) M/mm3 Hgb 10.3 L (13.5-18.0) gm/dL Hct 31.1 L (42.0-52.0) % MPV 10.9 H (6.0-9.5) fl Immature Gran % (Auto) 1.50 H (0.001-0.429) % Immature Gran # (Auto) 0.17 H (0.000-0.0310) K/mm3 Neutrophils % 83.5 H (42-75.0) % Lymphocytes % 6.7 L (20-51) % Neutrophils # 9.3 H (1.3-6.0) K/mm3 Lymphocytes # 0.8 L (1.5-3.5) k/mm3 - Exam Constitutional: Present: Alert, Oriented x3, Cooperative, No distress, Morbidly obese, Looks Older than stated age ENT Exam: Present: hearing grossly normal Neck: Present: full range of motion Respiratory: Present: chest non-tender, normal breath sounds, no respiratory distress, decreased breath sounds Cardiovascular/Chest: Present: normal peripheral pulses, regular rate, rhythm, no chest tenderness, edema Abdomen: Present: Normal bowel sounds, soft, nondistended, no rebound tenderness , obese Extremity: Present: normal range of motion, normal inspection, no calf tenderness, lower extremity edema, pedal edema, slow capillary refill Skin Exam: Present: other - cellulitis left leg extending to thigh and into the groin Neurologic: Present: normal mood/affect, oriented x 3 Appearance: Present: appropriate appearance, appropriate insight Eye contact: Present: cooperative, good eye contact Thoughts: Present: normal thought pattern Assessment/Plan Plan Narrative: Cellulitis and abscess of left leg POD# 1 06/10/17 Subcutaneous level debridement of ulcers left lower leg (anterolateral ulcer 15 cm x 12 cm. Posteromedial ulcers 15 cm x 12 cm and 7 cm x 7 cm)- secondary to Postphlebitic syndrome, chronic venous stasis with infected stasis ulcers left lower leg. Wound culture pending WBC 13--->13---> continue with vancomycin, pharmacy to dose. Keep legs elevated Sleep apnea Cpap encourage use of I/S and cornet Hypokalemia- stable On adm K+ 3.2--->3.4--->3.4---.3.8 Monitor cmp Chronic conditions stable Hypertension GERD Lymphedema Anxiety Asthma Venous stasis BIlateral lower extr edema Code status: Full GI ppx:Protonix VTE ppx: Heparin SC Q8hr Time 15 minutes and case discussed with Dr Zaidi - Problems/Diagnosis (1) Cellulitis and abscess of left leg Problem: Acute (2) Hypokalemia Problem: Resolved (3) Anxiety Problem: Chronic (4) GERD (gastroesophageal reflux disease) Problem: Chronic (5) HTN (hypertension) Problem: Chronic (6) Lymphedema Problem: Chronic (7) Sleep apnea Problem: Chronic
[2017-06-13] MEDS: VANCOMYCIN HCL IV SCH ×4 (01:50→14:40)
[2017-06-13] MEDS: WATER IV SCH ×4 (01:50→14:40)
[2017-06-13] MEDS: DEXTROSE 5% IV SCH ×4 (01:50→14:40)
[2017-06-13] MEDS: HYDROcodone/ACETAMINOPHEN 1 EACH TABLET PO PRN ×3 (01:54→14:37)
[2017-06-13 05:24] LABS: Hematocrit 31.1 % (42.0-52.0); Hemoglobin 10.3 gm/dL (13.5-18.0); Mean Cell Volume 86.6 fl (78-100); Mean Corpuscular Hemoglobin 28.7 pg (27-31); Mean Corpuscular Hgb Conc 33.1 g/dl (32-36); Mean Platelet Volume 10.6 fl (6.0-9.5); Neutrophil # 8.7 K/mm3 (1.3-6.0); Neutrophil % 80.5 % (42-75.0); Platelet Count 318 K/mm3 (150-450); Red Blood Count 3.59 M/mm3 (4.7-6.0); Red Cell Distribution Width 13.9 % (11.5-14.0); White Blood Count 10.8 K/mm3 (4.0-10.5)
[2017-06-13] MEDS: HEPARIN SODIUM,PORCINE 5,000 UNITS/ML VIAL SC SCH ×2 (06:01→14:36)
[2017-06-13] MEDS: PANTOPRAZOLE SODIUM 20 MG TABLET.DR PO SCH (06:29)
[2017-06-13] MEDS: ASPIRIN 81 MG TABLET.DR PO SCH (09:05)
[2017-06-13] MEDS: LISINOPRIL 20 MG TABLET PO SCH (09:05)
[2017-06-13] MEDS: POTASSIUM CHLORIDE 20 MEQ TABLET.SA PO SCH (09:05)
[2017-06-13] MEDS: ALLOPURINOL 100 MG TABLET PO SCH (09:05)
[2017-06-13] MEDS: FLUTICASONE/SALMETEROL 14 PUFF DISK.W.DEV IH SCH (09:32)
[2017-06-13] MEDS ORDERED: VANCOMYCIN HCL IV ONE ×2 (14:30)
[2017-06-13] MEDS ORDERED: DEXTROSE 5% IV ONE ×2 (14:30)
[2017-06-13] MEDS ORDERED: WATER IV ONE ×2 (14:30)
--- NOTE | 2017-06-13 17:08 | DS ---
(1) Cellulitis and abscess of left leg Problem: Acute Description of Stay: James is a 52 yo male who presented with Cellulitis/Erysipilas of Left lower leg. He had been treated with amoxicillin orally in the outpatient setting, but symptoms worsened. He was admitted and placed on vancomycin. WBC was trended and improved. After a couple days of fading erythema the lower leg erupted into multiple fluid filled blisters. Wound clinic was consulted and they recommended surgical debridement. General surgery was consulted and took the patient to surgery on 06/09/17 for surgical debridement. The wound was dressed and pain was controlled. He was discharged to home after completion of IV vancomycin for 7 days and once the dressing was changed once to evaluate for improvement. Upon changing the dressing following surgery the wound looked to be improving and he was discharged to home. Procedures Performed: see notes below List Procedures: Left lower extremity wound surgical debridement - 06/09/17 Discharge Location: Home Disposition: Home self-care Condition: Good Discharge Activity: Activity as tolerated Discharge Diet: Low salt Referrals: Rupa Boone PAC [[facility]] - 06/16/17 (Wound clinic ) Crhis Lane DO [Primary Care Provider] - One Week Problem Oriented Discharge Instructions to Patient/Family: Cellulitis, Adult, [id number] Additional Patient Instructions (free text): The dressing was secured with tubigrip and Coban. This will remain in place up to three days. Follow-up at the [facility] at discharge. [facility] will call you tomorrow with follow up appointments. Prescriptions (Any new or edited meds): HYDROcodone/ACETAMINOPHEN [[place] 5-325] 1 each PO QID PRN #60 tablet PRN Reason: Hypertension Sennosides [Senokot] 17.2 mg PO HS #60 tablet Complete Home Medications List: Complete Home Medication List: Albuterol Sulfate [Proair Hfa] 8.5 gm IH QID PRN 11/28/12 Allopurinol [Zyloprim] 200 mg PO DAILY 11/28/12 Aspirin [Aspirin Enteric Coated] 81 mg PO DAILY 11/28/12 Furosemide [Lasix] 40 mg PO BID 11/28/12 Lisinopril [Zestril] 20 mg PO DAILY 11/28/12 Fluticasone/Salmeterol [Advair 250-50 Diskus] 1 puff IH BID 01/21/17 Omeprazole Magnesium [Prilosec Otc] 20 mg PO DAILY 01/21/17 HYDROcodone/ACETAMINOPHEN [[place] 5-325] 1 each PO QID PRN #60 tablet 06/13/17 Sennosides [Senokot] 17.2 mg PO HS #60 tablet 06/13/17 Dicloxacillin Sodium 500 mg PO Q6H #28 cap 06/16/17
[2017-06-13 18:54] VITALS: BP 154/83
== END 2017-06-13 18:45 | disposition home or self-care (01) | DRG 571 ==
LOC: ER 00:38 → MS 04:04
PROVIDERS: ADMIT Nurse Practitioner; ATTEND Family Medicine
PROC: 0JBP0ZZ Excision of Left Lower Leg Subcutaneous Tissue and Fascia, Open Approach (ICD-10-PCS; principal; 2017-06-09)
DX: L03.116 Cellulitis of left lower limb (principal); L97.829 Non-pressure chronic ulcer of other part of left lower leg with unspecified severity; I83.028 Varicose veins of left lower extremity with ulcer other part of lower leg; E87.6 Hypokalemia; I10 Essential (primary) hypertension; E78.5 Hyperlipidemia, unspecified; I89.0 Lymphedema, not elsewhere classified